=== PATIENT | female | born 1960 | race Caucasian/White ===

== ENCOUNTER 2025-07-24 14:16 | Inpatient (IN) | payer OTHER, SELFPAY ==
[2025-07-24] VITALS (7 sets, daily range): BP systolic 117–162; BP diastolic 71–95; BMI 33.2; BMI 35.1
[2025-07-24 11:42] LABS: Glucose - Point of Care 90 mg/dl (70-99)
[2025-07-24 12:02] LABS: Hematocrit 41.4 % (37.0-47.0); Hemoglobin 14.6 g/dL (12.0-16.0); Mean Corp Hgb Conc. 35.3 g/dL (33.0-37.0); Mean Corpuscular Volume 101.7 fL (81.0-99.0); Nucleated Red Blood Cells % 0 %; Platelet Count 229 10^3/uL (130-400); Red Cell Dist. Width 14.0 % (11.5-14.5)
[2025-07-24 12:13] LABS: ALT (SGPT) 22 U/L (0-35); AST (SGOT) 25 U/L (14-36); Albumin 4.2 g/dl (3.5-5.0); Alkaline Phosphatase 103 U/L (38-126); Blood Urea Nitrogen 11 mg/dl (7-17); Calcium 9.4 mg/dl (8.4-10.2); Carbon Dioxide 26 mmol/L (22-30); Chloride 107 mmol/L (98-107); Estimated Creatinine Clearance 117 ml/min; Glucose 96 mg/dl (70-99); Potassium 4.2 mmol/L (3.5-5.1); Sodium 138 mmol/L (135-145); Total Protein 7.0 g/dl (6.3-8.2); eGFR > 60.00
--- NOTE | 2025-07-24 13:22 | ED.GENMED ---
History of Present Illness
General
Chief Complaint: Dizziness
Time Seen by Provider: 07/24/25 11:41
History of Present Illness
History of Present Illness:
65-year-old female presents to the emergency department for evaluation of progressive worsening gait dysfunction and generalized weakness, notes that this morning her speech appeared to be worse than normal. She has a history of chronic
epilepsy and has been maintained on primidone and Dilantin for many years. She denies any headache or vision changes at this time. No extremity weakness or paresthesias reported by the patient
Review of Systems
Review of Systems
Allergies reviewed?: Yes
All Other Systems: ROS reviewed and negative except as documented in HPI and ROS
Phy Exam
Physical Exam
Physical Exam:
GEN: Well appearing, NAD, WDWN
HEENT: Oral mucosa moist, no scleral icterus, no nasal congestion
Cardiac: Regular rate
Lung: No respiratory distress, no tachypnea
MSK: No gross deformity or injuries
Skin: Good color, no pallor or jaundice, no rashes
Neuro: AO x2; CN II-XII grossly intact. BUE strength 5/5 in all rivas, sensation intact and symmetric. BLE strength 5/5 in all rivas, sensation intact and symmetric. Limb ataxia x 4, significant horizontal nystagmus noted
Psych: Calm, cooperative
Course
Orders/Labs/Results
Orders:
Orders
07/24/25 11:40
CT Head W/o Iv Contrast Urgent
Comment:
Reason For Exam: slurred speech/ataxia
07/24/25 11:41
Urinalysis Reflex To Culture Urgent
Date Specimen was Collected: 07/24/25
Time Specimen was Collected: 11:41
07/24/25 11:46
Alcohol Urgent
CBC/With Diff [Complete Blood Count/With Diff] Urgent
CMP [Comprehensive Metabolic Panel] Urgent
Dilantin Urgent
07/24/25 11:57
Speech Screening from Katerina Routine
07/24/25 12:34
Add On- LAB Urgent
Tests Added?: alcohol
07/24/25 13:24
Levetiracetam Injectable [Keppra] 500 mg IV NOW STA
07/24/25 13:26
Levetiracetam [Keppra] 500 mg PO NOW STA
07/24/25 13:55
Consult Neurology [NEUROLOGY CONSULT] Routine
Consulting Provider: Vivek Molina
Was physician already notified: Yes
Reason for consult: New neurological issues
07/24/25 13:56
Admit/Transfer Patient As Directed
Co-Sign Provider:
Level of Care: Inpatient admission
Assign to:: Telemetry
Physician / Group: tiana
Diagnosis: ataxia phenytoin toxicity
Reason for Telemetry: Arrhythmia
Date to Stop Telemetry: 07/27/25
Time to Stop Telemetry: 11:00
Reason for Hospitalization: ataxia phenytoin toxicity
Expected length of stay greater than two midnights?: Yes
ELOS- Estimated Length of Stay in days: 2
I certify the patient meets the requirements for IP care: Yes
Code Status As Directed
Resuscitation Status: Full Code
PRN Pain Medication Management As Directed
May give lesser potent ordered pain med per pt: Yes
preference::
Protocol:: Medication orders for pain may be administered in a
manner that supports deferring to patient preference
when the pt is:
- Requesting an ordered lesser potent pain medication.
Least to most potent pain medications are defined
as: acetaminophen < NSAID < tramadol < opioids
(morphine, oxycodone, hydromorphone).
- Requesting a lesser dose of the same medication IF
ORDERED.
- Requesting a less intrusive route of administration
if both routes are prescribed by the provider (PO <
IV).
07/27/25 11:00
DC Protocol for Telemetry ONCE
Abnormal Lab Results
07/24/25
11:46
WBC 4.7 L 10^3/uL
(4.8-10.8)
RBC 4.07 L 10^6/uL
(4.20-5.40)
MCV 101.7 H fL
(81.0-99.0)
MCH 35.9 H pg
(27.0-31.0)
Monocytes % 9.7 H %
(1.7-9.3)
Creatinine 0.5 L mg/dL
(0.6-1.0)
Phenytoin 29.4 H ug/ml
(10-20)
07/24/25 11:46
07/24/25 11:46
Vital Signs
Initial and Last Documented VS:
Initial Vital Signs
Temp Pulse Resp BP Pulse Ox
98.2 F 90 16 121/86 96
07/24/25 11:22 07/24/25 11:22 07/24/25 11:22 07/24/25 11:22 07/24/25 11:22
Last Documented Vital Signs
Temp Pulse Resp BP Pulse Ox
98.2 F 70 23 128/76 92
07/24/25 11:22 07/24/25 14:30 07/24/25 11:45 07/24/25 14:00 07/24/25 14:30
MDM/Problems Addressed
MDM/Problems Addressed:
This cerebellar atrophy which is most likely due to patient's chronic Dilantin use. Case was discussed with neurology patient at bedside and does not feel that additional imaging is of any value at this juncture. Will be admitted due to severe
gait instability, will transition antiepileptic therapy per neurology recommendations
*Pulse Oximetry
SaO2: 95
Oxygen Mode of Delivery: Room air
Patient hypoxic: no
*Critical Care Note
Total Time (30-74mins, 75-104mins- exclusive of procedures): Not Applicable
ED Attending Note
-
Portions of this chart may have been created with voice recognition software.� Occasional wrong word or��sound alike� substitutions may have occurred due to the inherent limitations of voice recognition software.
Discharge Plan
Departure
Patient Disposition: Admit
Date of Disposition: 07/24/25
Time of Disposition: 13:26
Admit to: Med/Surg
Presentation/result/management discussed w/ accepting MD/DO: Hospitalist
Patient with high blood pressure during this ER visit?: No
Discharge Problem:
Ataxia, Cerebellar atrophy
Interventions
Interventions:
*Risk Screen - Suicide Last Done: 07/24/25 11:22
*Neglect/Abuse Screening Last Done: 07/24/25 11:22
*ED- Fall Risk Assessment Last Done: 07/24/25 11:22
ED- Neurological Assessment Last Done: 07/24/25 11:53
ED- Cardiac Assessment Last Done: 07/24/25 11:53
ED Swallowing Screen Last Done: 07/24/25 11:53
--- NOTE | 2025-07-24 13:39 | CON.NEURO ---
Neuro Assessment/Plan
Assessment
head CT imgs and rept rev'd, I agree moderate cerebellar and mild brainstem atrophy.
Dilantin level 29.4 (10-20)
the nystagmus typically indicates therapeutic dilantin, and when double vision develops that usually indicates toxicity.
The cerebellar atrophy and ataxia likely mcfp effect of Dilantin and I agree with prior neurologists who have tried to get her off Dilantin though unsuccessfully with breakthrough sz
if she were to have breakthrough sz, I would increase Keppra, and not restart Dilantin; she does not drive
this may help the ataxia improve, or at least prevent worsening
will Rx Keppra 500 BID, decrease Dilantin 100 BID x1 week, then stop, continue Primidone for now though Ideally she eventually
I recommend admit obs PT/OT eval I have serious concerns for falls and fractures
she almost certainly has osteoporosis because 3 risk factors (post menopausal, mcfp Dilantin, and primidone) and a DEXA would be helpful to quantify the severity.
dysarthria, likely due to Dilantin changing facial structure.
Consultation
Order
Date of Consultation: 07/24/25
Requesting Provider: Stephanie
Reason for Consult: ataxia
Subjective/Objective
Subjective Data
Date of Service: July 24, 2025
65-year-old female presents to the emergency department for evaluation of progressive worsening gait dysfunction and generalized weakness, notes that this morning her speech appeared to be worse than normal. She has a history of chronic
epilepsy and has been maintained on primidone and Dilantin for many years. She denies any headache or vision changes at this time. No extremity weakness or paresthesias reported by the patient
Epilepsy began age 10. initially on phenobarb. for the past 25-30 years she has been on Dilantin 200 BID, and primidone 750 BID for sz. This regimen has been effective at controlling her sz, and her PCP has renewed them. Over the years, they saw
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
intermittent diplopia, not presently. never had dexa.
Objective Data
Vital Signs
Temp Pulse Resp BP Pulse Ox
36.8 C 83 23 142/92 95
07/24/25 11:22 07/24/25 11:45 07/24/25 11:45 07/24/25 11:39 07/24/25 13:24
Lab Results
07/24/25 11:46
07/24/25 11:46
Sodium 138 mmol/L (135-145) 07/24/25 11:46
Potassium 4.2 mmol/L (3.5-5.1) 07/24/25 11:46
BUN 11 mg/dl (7-17) 07/24/25 11:46
Glucose 96 mg/dl (70-99) 07/24/25 11:46
Calcium 9.4 mg/dl (8.4-10.2) 07/24/25 11:46
Patient Allergies
No Known Allergies Allergy (Unverified 07/24/25 11:21)
Physical Exam
-
AAOx3, mild dysarthria, language intact
VFF, EOMs restricted, + nystagmus
full strength b/l UE/LE,
ataxia x4 limbs more than expected for age.
Medications
-
Home Medications
�Medication �Instructions �Recorded
phenytoin sodium extended 200 mg 200 mg PO BID 07/24/25
capsule
primidone 250 mg tablet 750 mg PO BID 07/24/25
[2025-07-24] MEDS: KEPPRA 500 MG PO ×2 (13:40→20:07)
--- NOTE | 2025-07-24 13:58 | HPS.HSE ---
Family Physician
-
Family Physician: Duc Plunkett
Chief Complaint
-
ataxia
History of Present Illness
65-year-old female past medical history of epilepsy, presenting for progressive gait dysfunction and generalized weakness. She has been having gait dysfunction with falls for the past 2 weeks. Is also been having intermittent blurry vision and
double vision. Her notes that this morning her speech appeared to be worse than normal and she was acting drunk. She has a history of epilepsy and has been on primidone and Dilantin for many years without any seizure. Denies headache.
Denies weakness of the extremities, numbness or tingling.
She drinks alcohol a few times a year. Denies smoking or drugs.
Denies family history of neurological problems.
Medical History
Past Medical History
Past Medical History: Reports Other (epilepsy,)
Past Surgical History: Reports None
Social History
Tobacco: Non-smoker
Alcohol: Occasional
Drug: None
Family History
Family History: Not pertinent
Allergies / Home Medications
Allergies reflects when Allergies were last updated in [facility].
Home Medications with original date entered in [facility]
Allergy/Medication List:
Allergies
Allergy/AdvReac Type Severity Reaction Status Date / Time
No Known Allergies Allergy Unverified 07/24/25 11:21
Home Medications
phenytoin sodium extended 200 mg capsule 200 mg PO BID 07/24/25
primidone 250 mg tablet 750 mg PO BID 07/24/25
Review of Systems
-
Constitutional: Reports No Symptoms
EENT: Reports No Symptoms
Respiratory: Reports No Symptoms
Cardiac: Reports No Symptoms
Abdomen/GI: Reports No Symptoms
: Reports No Symptoms
Musculoskeletal: Reports No Symptoms
Skin: Reports No Symptoms
Neurological: Reports No Symptoms
Endocrine: Reports No Symptoms
Hematologic/Lymphatic: Reports No Symptoms
Psych: Reports No Symptoms
Physical Exam
Vital Signs
Vital Signs
Temp Pulse Resp BP Pulse Ox
98.2 F 83 23 142/92 95
07/24/25 11:22 07/24/25 11:45 07/24/25 11:45 07/24/25 11:39 07/24/25 13:24
Physical Exam
General: Well Developed, Well Nourished and No Apparent Distress
HEENT: NormoCephalic, Moist mucous membranes and Atraumatic
Respiratory: Clear
Cardiac: S1/S2 and Regular Rhythm; No Murmur or Rub
GI: Soft, Non Tender, Non Distended and Normal Bowel Sounds; No Organomegaly
Rectal: Deferred by Provider
Musculoskeletal: No Clubbing, No Cyanosis and No Edema
Skin: No Rash
Neuro: Nonfocal/grossly intact
Laboratory Results
-
07/24/25 11:46
07/24/25 11:46
Laboratory Results
Total Bilirubin 0.5 mg/dl (0.2-1.3) 07/24/25 11:46
AST 25 U/L (14-36) 07/24/25 11:46
ALT 22 U/L (0-35) 07/24/25 11:46
Alkaline Phosphatase 103 U/L (38-126) 07/24/25 11:46
Data Reviewed
-
Lab Data: Labs Reviewed by me
Old Records: Reviewed
Impression/Plan
-
IMPRESSION:
PLAN:
# Severe ataxia secondary to phenytoin toxicity/underlying cerebellar atrophy
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
- Phenytoin level of 29
-Urinalysis pending
-Alcohol level pending
- Neurology recommending weaning off Dilantin and starting Keppra
- Keppra 500 twice daily started
- Speech and swallow evaluation
# Leukopenia secondary to Dilantin
Epilepsy
-Patient now on Keppra
- Continue primidone
Full code
DVT prophylaxis�SCDs
Regular diet
--- NOTE | 2025-07-24 14:19 | CM ---
CM reviewed chart and met with pt and in ED. Lives with in 1 story home, [address].
Independent in ADLs, personal care and ambulation at baseline. Has cane but does not use it, states she uses the armenta for balance.
Unsure if she has prescription coverage, new insurance plan since retiring to cover her until she qualifies for Medicare next year.
No hx VN or SNF.
PCP: Duc Plunkett
Pharmacy: [facility]
CM will continue to follow for all discharge planning needs.
--- NOTE | 2025-07-24 15:52 | TRANSFER ---
Pt transferred from ED to [facility] at 1520. She stood and pivoted with standby assistance from the stretcher to the bed. Placed on tele monitor #[id number], NSR. Accompanied by her . She is on room air, no complaints at the moment. Some dysarthria
present. Strength 4/5 in all extremities. Admission and assessment completed by this RN. Call esquivel is within reach.
[2025-07-24] MEDS: DILANTIN 100 MG PO (20:07)
[2025-07-24] MEDS: MYSOLINE 750 MG PO (20:07)
[2025-07-25] VITALS (7 sets, daily range): BP systolic 120–138; BP diastolic 61–90; PULSE 80; O2SAT 95
[2025-07-25 06:00] LABS: Hematocrit 42.6 % (37.0-47.0); Hemoglobin 15.0 g/dL (12.0-16.0); Mean Corp Hgb Conc. 35.2 g/dL (33.0-37.0); Mean Corpuscular Volume 101.9 fL (81.0-99.0); Nucleated Red Blood Cells % 0 %; Platelet Count 214 10^3/uL (130-400); Red Cell Dist. Width 14.0 % (11.5-14.5)
[2025-07-25 06:29] LABS: ALT (SGPT) 21 U/L (0-35); AST (SGOT) 25 U/L (14-36); Albumin 4.1 g/dl (3.5-5.0); Alkaline Phosphatase 100 U/L (38-126); Blood Urea Nitrogen 9 mg/dl (7-17); Calcium 8.9 mg/dl (8.4-10.2); Carbon Dioxide 23 mmol/L (22-30); Chloride 106 mmol/L (98-107); Estimated Creatinine Clearance 112 ml/min; Glucose 82 mg/dl (70-99); Potassium 4.4 mmol/L (3.5-5.1); Sodium 137 mmol/L (135-145); Total Protein 6.9 g/dl (6.3-8.2); eGFR > 60.00
[2025-07-25] MEDS: MYSOLINE 750 MG PO ×2 (08:22→20:23)
[2025-07-25] MEDS: KEPPRA 500 MG PO ×2 (08:22→20:22)
[2025-07-25] MEDS: DILANTIN 100 MG PO (08:22)
--- NOTE | 2025-07-25 08:37 | W.PN.HOSP.TC ---
Today's Communication/Plan
-
Check EKG
- Repeat blood level
f/w neurology recommendations
Assessment / Plan
Assessment / Plan
Physical Exam
General: and No Apparent Distress
HEENT: Normocephalic, Moist mucous membranes and Atraumatic
Respiratory: Clear
Cardiac: S1/S2
GI: Soft, Non Tender, Non Distended and Normal Bowel Sounds;
Musculoskeletal: No Clubbing, No Cyanosis and No Edema
Skin: No Rash
Neuro: AAOX3, although forgetful to prior medical details, she followed commands, nystagmus noted. No tremor, No slurred speech.
Psych: calm.
# Chronic Phenytoin toxicity
Patient presented with ataxia, dysarthria, weakness.
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
- Phenytoin level of 29
-Check EKG
- Repeat blood level
-Alcohol level negative
- Started on Keppra 500 twice daily started
- Speech and swallow evaluation
- Neurology recommending , reducing the dose, weaning off Dilantin and starting Keppra
# Leukopenia secondary to Dilantin
Afebrile
Epilepsy
-Patient now on Keppra
- Continue primidone
Full code
DVT prophylaxis�SCDs
Regular diet
Total time spent to see the patient, examine the patient, review data and lab result, discuss treatment plan with patient, nursing staff around 55 minutes
Anticipated Discharge: > 48 hours
Subjective/Interval History
-
Date of Service: July 25, 2025
She feels better
She denies chest pain or abdominal pain
No nausea
No headache
Objective Data
-
Labs:
Laboratory Results
07/25/25
04:12
WBC 4.3 L
Hgb 15.0
Hct 42.6
Plt Count 214
Sodium 137
Potassium 4.4
Chloride 106
Carbon Dioxide 23
BUN 9
Creatinine 0.4 L
Glucose 82
Calcium 8.9
Total Bilirubin 0.6
AST 25
ALT 21
Alkaline Phosphatase 100
Vital Signs:
Vital Signs
Temp Pulse Resp BP Pulse Ox
97.8 F 74 16 138/90 95
07/25/25 07:18 07/25/25 07:18 07/25/25 07:18 07/25/25 07:18 07/25/25 07:18
I&O
07/24/25 07/25/25 07/26/25
06:59 06:59 06:59
Intake Total 150 / 150
Balance 150 / 150
[2025-07-26 03:25] VITALS: BP 137/87
[2025-07-26 07:07] VITALS: BP 141/87
[2025-07-26] MEDS: KEPPRA 500 MG PO (07:54)
[2025-07-26] MEDS: MYSOLINE 750 MG PO ×2 (07:55→20:07)
[2025-07-26] MEDS: DILANTIN PO (07:58)
[2025-07-26 08:17] LABS: Hematocrit 43.3 % (37.0-47.0); Hemoglobin 15.1 g/dL (12.0-16.0); Mean Corp Hgb Conc. 34.9 g/dL (33.0-37.0); Mean Corpuscular Volume 100.7 fL (81.0-99.0); Platelet Count 178 10^3/uL (130-400); Red Cell Dist. Width 14.4 % (11.5-14.5)
[2025-07-26] MEDS: DULCOLAX 10 MG PO (08:20)
[2025-07-26 08:43] LABS: ALT (SGPT) 22 U/L (0-35); AST (SGOT) 23 U/L (14-36); Albumin 4.3 g/dl (3.5-5.0); Alkaline Phosphatase 100 U/L (38-126); Blood Urea Nitrogen 13 mg/dl (7-17); Calcium 9.2 mg/dl (8.4-10.2); Carbon Dioxide 24 mmol/L (22-30); Chloride 107 mmol/L (98-107); Estimated Creatinine Clearance 112 ml/min; Glucose 86 mg/dl (70-99); Potassium 4.7 mmol/L (3.5-5.1); Sodium 137 mmol/L (135-145); Total Protein 7.2 g/dl (6.3-8.2); eGFR > 60.00
[2025-07-26 11:06] VITALS: BP 127/84
--- NOTE | 2025-07-26 11:22 | W.PN.NEURO.1 ---
Today's Communication / Plan
-
Would maintain phenytoin at 100 mg twice a day for now
Increase levetiracetam dosing from 500 mg twice daily to 1000 mg twice daily in hopes of reducing risk of future seizure
Eventual discontinuance of phenytoin due to cerebellar atrophy
Continue primidone 750 mg twice a day for now
Neuro Assessment/Plan
Assessment
head CT imgs demonstrate moderate cerebellar and mild brainstem atrophy.
Dilantin level 29.4 (10-20) initially
The cerebellar atrophy and ataxia likely custodial effect of Dilantin prior attempts to discontinue Dilantin were unsuccessfull with breakthrough sz
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
Plan
Would maintain phenytoin at 100 mg twice a day for now
Increase levetiracetam dosing from 500 mg twice daily to 1000 mg twice daily in hopes of reducing risk of future seizure
Eventual discontinuance of phenytoin due to cerebellar atrophy
Continue primidone 750 mg twice a day for now
Will follow as outpatient
Subjective/Objective
Subjective Data
Date of Service: July 26, 2025
Objective Data
Vital Signs
Temp Pulse Resp BP Pulse Ox
36.6 C 74 16 127/84 94
07/26/25 11:06 07/26/25 11:06 07/26/25 11:06 07/26/25 11:06 07/26/25 11:06
Lab Results
07/26/25 07:47
07/26/25 07:47
Sodium 137 mmol/L (135-145) 07/26/25 07:47
Potassium 4.7 mmol/L (3.5-5.1) 07/26/25 07:47
BUN 13 mg/dl (7-17) 07/26/25 07:47
Glucose 86 mg/dl (70-99) 07/26/25 07:47
Calcium 9.2 mg/dl (8.4-10.2) 07/26/25 07:47
Patient Allergies
No Known Allergies Allergy (Unverified 07/24/25 11:21)
Data Reviewed
-
Labs: Report Reviewed
Reviewed with: Physician
Old Records: Summarized
[2025-07-26 15:17] VITALS: BP 136/82
--- NOTE | 2025-07-26 15:22 | W.PN.HOSP.TC ---
Today's Communication/Plan
-
Increase Keppra
PT/OT
Disposition planning
Assessment / Plan
Assessment / Plan
Physical Exam
General: and No Apparent Distress
HEENT: Normocephalic, Moist mucous membranes and Atraumatic
Respiratory: Clear
Cardiac: S1/S2
GI: Soft, Non Tender, Non Distended and Normal Bowel Sounds;
Musculoskeletal: No Clubbing, No Cyanosis and No Edema
Skin: No Rash
Neuro: AAOX3, although forgetful to prior medical details, she followed commands, nystagmus noted. No tremor, No slurred speech.
Psych: calm.
# Chronic Phenytoin toxicity
Patient presented with ataxia, dysarthria, weakness.
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
- Phenytoin level of 29
- Neurology recommending , reducing the dose, weaning off Dilantin and starting Keppra
-Would maintain phenytoin at 100 mg twice a day for now
-Increase levetiracetam dosing from 500 mg twice daily to 1000 mg twice daily in hopes of reducing risk of future seizure
-Eventual discontinuance of phenytoin due to cerebellar atrophy
-Continue primidone 750 mg twice a day for now
# Leukopenia secondary to Dilantin
Afebrile
Epilepsy
-Patient now on Keppra
- Continue primidone
Full code
DVT prophylaxis�SCDs
Regular diet
Anticipated Discharge: Within 24 hours
Subjective/Interval History
-
Date of Service: July 26, 2025
Patient's speech has improved as per patient
Objective Data
-
Labs:
Laboratory Results
07/26/25
07:47
WBC 4.3 L
Hgb 15.1
Hct 43.3
Plt Count 178
Sodium 137
Potassium 4.7
Chloride 107
Carbon Dioxide 24
BUN 13
Creatinine 0.5 L
Glucose 86
Calcium 9.2
Total Bilirubin 0.7
AST 23
ALT 22
Alkaline Phosphatase 100
Vital Signs:
Vital Signs
Temp Pulse Resp BP Pulse Ox
96.9 F L 78 16 136/82 95
07/26/25 15:17 07/26/25 15:17 07/26/25 15:17 07/26/25 15:17 07/26/25 15:17
I&O
07/25/25 07/26/25 07/27/25
06:59 06:59 06:59
Intake Total 150 / 150 840 / 840
Balance 150 / 150 840 / 840
Review of Systems
-
History Source: Patient
All other systems: Not reviewed unless documented
Data Reviewed
-
CT Scan: Report Reviewed by me
Labs: Labs Reviewed by me
--- NOTE | 2025-07-26 16:03 | CM ---
manager music met with patient and reviewed physical therapy notes and recommendation is for skilled placement options reviewed with patient and patient has selected [facility] and [facility]. Referrals sent.
Plan; Skilled placement, will need to check to see if patient has a rehab benefit with her insurance.
[2025-07-26] MEDS: HEPARIN 5000 UNITS SC ×2 (16:58→23:49)
[2025-07-26 19:13] VITALS: BP 130/83
[2025-07-26] MEDS: KEPPRA 1000 MG PO (20:07)
[2025-07-26] MEDS: DILANTIN 100 MG PO (20:07)
[2025-07-26 23:17] VITALS: BP 120/71
[2025-07-27] VITALS (7 sets, daily range): BP systolic 115–149; BP diastolic 67–90; PULSE 84–90; O2SAT 96
[2025-07-27] MEDS: KEPPRA 1000 MG PO ×2 (07:56→20:47)
[2025-07-27] MEDS: MYSOLINE 750 MG PO ×2 (07:56→20:47)
[2025-07-27] MEDS: DILANTIN 100 MG PO (07:57)
[2025-07-27] MEDS: HEPARIN 5000 UNITS SC ×3 (07:58→23:53)
[2025-07-27 08:43] LABS: Hematocrit 44.1 % (37.0-47.0); Hemoglobin 15.0 g/dL (12.0-16.0); Mean Corp Hgb Conc. 34.0 g/dL (33.0-37.0); Mean Corpuscular Volume 102.3 fL (81.0-99.0); Platelet Count 217 10^3/uL (130-400); Red Cell Dist. Width 14.4 % (11.5-14.5)
[2025-07-27 09:06] LABS: ALT (SGPT) 20 U/L (0-35); AST (SGOT) 24 U/L (14-36); Albumin 4.4 g/dl (3.5-5.0); Alkaline Phosphatase 109 U/L (38-126); Blood Urea Nitrogen 11 mg/dl (7-17); Calcium 9.2 mg/dl (8.4-10.2); Carbon Dioxide 29 mmol/L (22-30); Chloride 105 mmol/L (98-107); Estimated Creatinine Clearance 112 ml/min; Glucose 95 mg/dl (70-99); Potassium 4.5 mmol/L (3.5-5.1); Sodium 137 mmol/L (135-145); Total Protein 7.2 g/dl (6.3-8.2); eGFR > 60.00
--- NOTE | 2025-07-27 13:04 | W.PN.NEURO.1 ---
Today's Communication / Plan
-
Would discontinue phenytoin due to continued symptoms
Increased levetiracetam dosing from 500 mg twice daily to 1000 mg twice daily in hopes of reducing risk of future seizure
Continue primidone 750 mg twice a day for now
Neuro Assessment/Plan
Assessment
head CT imgs demonstrate moderate cerebellar and mild brainstem atrophy.
Dilantin level 29.4 (10-20) initially
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
she almost certainly has osteoporosis because 3 risk factors (post menopausal, retirement Dilantin, and primidone) and a DEXA would be helpful to quantify the severity.
Plan
Would discontinue phenytoin due to continued symptoms
Increased levetiracetam dosing from 500 mg twice daily to 1000 mg twice daily in hopes of reducing risk of future seizure
Continue primidone 750 mg twice a day for now
Will follow as outpatient
Subjective/Objective
Subjective Data
Date of Service: July 27, 2025
Objective Data
Vital Signs
Temp Pulse Resp BP Pulse Ox
36.5 C 80 19 116/83 94
07/27/25 11:00 07/27/25 11:00 07/27/25 11:00 07/27/25 11:00 07/27/25 11:00
Lab Results
07/27/25 08:12
07/27/25 08:12
Sodium 137 mmol/L (135-145) 07/27/25 08:12
Potassium 4.5 mmol/L (3.5-5.1) 07/27/25 08:12
BUN 11 mg/dl (7-17) 07/27/25 08:12
Glucose 95 mg/dl (70-99) 07/27/25 08:12
Calcium 9.2 mg/dl (8.4-10.2) 07/27/25 08:12
Patient Allergies
No Known Allergies Allergy (Unverified 07/24/25 11:21)
Past History
Past History
ED Past Medical History: Other (seizures)
Family History
Family History: Other (reviewed and non-contributory)
Medications
-
Medications:
Generic Name Dose Route Start Last Admin
Trade Name Freq PRN Reason Stop Dose Admin
Bisacodyl 10 mg 07/25/25 18:11 07/26/25 08:20
Bisacodyl 5 Mg Enteric Coated Tablet PO 08/22/25 18:10 10 mg
DAILYPRN PRN Administration
constipation
Heparin Sodium 5,000 units 07/26/25 16:00 07/27/25 07:58
Heparin 5,000 Units/Ml 1 Ml Vial SC 08/23/25 15:59 5,000 units
Q8 SCAR Administration
Levetiracetam 1,000 mg 07/26/25 11:21 07/27/25 07:56
Levetiracetam 500 Mg Regular Release Tablet PO 08/21/25 19:59 1,000 mg
BID SCAR Administration
Primidone 750 mg 07/24/25 20:00 07/27/25 07:56
Primidone 250 Mg Tablet PO 08/21/25 19:59 750 mg
BID SCAR Administration
Sodium Chloride 0 flush 07/26/25 16:00
Sodium Chloride 0.9% (Flush) Syringe IV 08/23/25 15:59
PER PROTOCOL SCAR
--- NOTE | 2025-07-27 13:57 | CM ---
Addendum entered by Georgina Gomez 07/27/25 16:54:
Multiple calls placed to check on patient's insurance, correctional case manager spoke with Jeanette liu and she will contact her cooperate offices to see if any of their facilities will accept patient for rehab.
Original Note:
tire shop manager reviewed patient's chart and physical therapy are still recommending skilled placement, referrals sent to [facility], [facility] and [facility], patient's insurance does not have a contract with [facility], Per Elisha in admissions at [facility] she will review insurance to check benefits.
Plan; Skilled placement, patient has a [employer] plan, need to locate a in network facility.
--- NOTE | 2025-07-27 14:06 | W.PN.HOSP.TC ---
Today's Communication/Plan
-
stop dilantin
keppra
dc ready
Assessment / Plan
Assessment / Plan
Physical Exam
General: and No Apparent Distress
HEENT: Normocephalic, Moist mucous membranes and Atraumatic
Respiratory: Clear
Cardiac: S1/S2
GI: Soft, Non Tender, Non Distended and Normal Bowel Sounds;
Musculoskeletal: No Clubbing, No Cyanosis and No Edema
Skin: No Rash
Neuro: AAOX3, although forgetful to prior medical details, she followed commands, nystagmus noted. No tremor, No slurred speech.
Psych: calm.
# Chronic Phenytoin toxicity
Patient presented with ataxia, dysarthria, weakness.
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
- Phenytoin level of 29
- Stopping Dilantin due to continued symptoms; may take 72 hours for evidence of improved response
-Increase levetiracetam dosing from 500 mg twice daily to 1000 mg twice daily in hopes of reducing risk of future seizure
-Continue primidone 750 mg twice a day for now
# Leukopenia secondary to Dilantin
Afebrile
Epilepsy
-Patient now on Keppra
- Continue primidone
Full code
DVT prophylaxis�hsq
Regular diet
Anticipated Discharge: Within 24 hours
Subjective/Interval History
-
Date of Service: July 27, 2025
No acute events overnight
Objective Data
-
Labs:
Laboratory Results
07/27/25
08:12
WBC 5.0
Hgb 15.0
Hct 44.1
Plt Count 217 D
Sodium 137
Potassium 4.5
Chloride 105
Carbon Dioxide 29
BUN 11
Creatinine 0.5 L
Glucose 95
Calcium 9.2
Total Bilirubin 0.6
AST 24
ALT 20
Alkaline Phosphatase 109
Vital Signs:
Vital Signs
Temp Pulse Resp BP Pulse Ox
97.7 F 80 19 116/83 94
07/27/25 11:00 07/27/25 11:00 07/27/25 11:00 07/27/25 11:00 07/27/25 11:00
I&O
07/26/25 07/27/25 07/28/25
06:59 06:59 06:59
Intake Total 840 / 840 1280 / 1280
Balance 840 / 840 1280 / 1280
Review of Systems
-
History Source: Patient
All other systems: Not reviewed unless documented
Data Reviewed
-
CT Scan: Report Reviewed by me
Labs: Labs Reviewed by me
[2025-07-28] MEDS: TYLENOL 650 MG PO (03:26)
[2025-07-28 04:18] VITALS: BP 113/67
[2025-07-28 06:58] LABS: ALT (SGPT) 22 U/L (0-35); AST (SGOT) 25 U/L (14-36); Albumin 3.9 g/dl (3.5-5.0); Alkaline Phosphatase 103 U/L (38-126); Blood Urea Nitrogen 10 mg/dl (7-17); Calcium 9.1 mg/dl (8.4-10.2); Carbon Dioxide 28 mmol/L (22-30); Chloride 106 mmol/L (98-107); Estimated Creatinine Clearance 112 ml/min; Glucose 88 mg/dl (70-99); Potassium 4.1 mmol/L (3.5-5.1); Sodium 137 mmol/L (135-145); Total Protein 6.7 g/dl (6.3-8.2); eGFR > 60.00
[2025-07-28 07:12] LABS: Hematocrit 40.2 % (37.0-47.0); Hemoglobin 13.7 g/dL (12.0-16.0); Mean Corp Hgb Conc. 34.1 g/dL (33.0-37.0); Mean Corpuscular Volume 102.0 fL (81.0-99.0); Platelet Count 206 10^3/uL (130-400); Red Cell Dist. Width 14.4 % (11.5-14.5)
[2025-07-28 07:15] VITALS: BP 120/77
--- NOTE | 2025-07-28 08:11 | VATNOTE ---
Pt c/o mild discomfort at IV site. Site assessed with no s/s infiltration, phlebitis, or infection. Pt may be discharged today per PCN, so reluctant to replace IV. Heat applied to site, pt states relief from discomfort with heat application.
Informed pt to notify PCN if discomfort persisted and pt wanted IV changed and this RN would return to change IV site.
[2025-07-28] MEDS: HEPARIN 5000 UNITS SC (08:40)
[2025-07-28] MEDS: KEPPRA 1000 MG PO (08:41)
[2025-07-28] MEDS: MYSOLINE 750 MG PO (08:41)
--- NOTE | 2025-07-28 10:26 | CM ---
Addendum entered by Georgina Gomez 07/28/25 16:19:
Home today with walker, spouse to transport.
Original Note:
life sciences manager continues to reach out to patient's insurance call placed to [facility] and he said they are a 3rd democrat manager fitness and pillowcase cleaner would have to call [employer] [facility] at [phone], pillowcase cleaner reached out and spoke
with Debra and she reviewed patient's insurance and patient has Hospital coverage through confinement care benefit, PCP office coverage $50 per day max of 3 days, and emergency room benefit along with accidental benefit, patient has no
skilled benefit or acute rehab benefit through her insurance.
Plan; Home when stable.
[2025-07-28 11:29] VITALS: BP 114/82
--- NOTE | 2025-07-28 14:00 | W.PN.HOSP.TC ---
Addendum entered and electronically signed by Hai Mooney MD 07/28/25 17:33:
[id number]
Addendum entered and electronically signed by Hai Mooney MD 07/28/25 15:47:
More than 30 minutes spent in discharge including
Final examination of the patient
Summarizing hospital stay
Instructions for continuing care to all relevant caregivers
Preparation of discharge records, prescriptions, and referral forms
Total time spent (in minutes): 37
Insurance not covering facilities - patient agreeable understanding risks -of being discharged home with walker; patient has as supervision at home
Original Note:
Today's Communication/Plan
-
Disposition efforts
Assessment / Plan
Assessment / Plan
Physical Exam
General: and No Apparent Distress
HEENT: Normocephalic, Moist mucous membranes and Atraumatic
Respiratory: Clear
Cardiac: S1/S2
GI: Soft, Non Tender, Non Distended and Normal Bowel Sounds;
Musculoskeletal: No Clubbing, No Cyanosis and No Edema
Skin: No Rash
Neuro: AAOX3, although forgetful to prior medical details, she followed commands, nystagmus noted. No tremor, No slurred speech.
Psych: calm.
# Chronic Phenytoin toxicity
Patient presented with ataxia, dysarthria, weakness.
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
- Phenytoin level of 29
- Stopping Dilantin due to continued symptoms; may take 72 hours for evidence of improved response
-Increase levetiracetam dosing from 500 mg twice daily to 1000 mg twice daily in hopes of reducing risk of future seizure
-Continue primidone 750 mg twice a day for now
# Leukopenia secondary to Dilantin
Afebrile
Epilepsy
-Patient now on Keppra
- Continue primidone
Full code
DVT prophylaxis�hsq
Regular diet
Anticipated Discharge: Within 24 hours
Subjective/Interval History
-
Date of Service: July 28, 2025
No acute events
Improvement in symptoms as per patient
Objective Data
-
Labs:
Laboratory Results
07/28/25
05:52
WBC 3.9 L
Hgb 13.7
Hct 40.2
Plt Count 206
Sodium 137
Potassium 4.1
Chloride 106
Carbon Dioxide 28
BUN 10
Creatinine 0.4 L
Glucose 88
Calcium 9.1
Total Bilirubin 0.5
AST 25
ALT 22
Alkaline Phosphatase 103
Vital Signs:
Vital Signs
Temp Pulse Resp BP Pulse Ox
97.7 F 90 16 114/82 93
07/28/25 11:29 07/28/25 11:29 07/28/25 11:29 07/28/25 11:29 07/28/25 11:29
I&O
07/27/25 07/28/25 07/29/25
06:59 06:59 06:59
Intake Total 1280 / 1280 1879
Balance 1280 / 1280 1879
Review of Systems
-
History Source: Patient
All other systems: Not reviewed unless documented
Data Reviewed
-
CT Scan: Report Reviewed by me
Labs: Labs Reviewed by me
[2025-07-28 15:15] VITALS: BP 132/77
--- NOTE | 2025-07-28 15:47 | W.DS.TRANS ---
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
-
Discharge Instructions:
Discharge Diagnosis/Procedures # Chronic Phenytoin toxicity
Activity As tolerated
Blood Work cbc and cmp in 1 week with pcp
Instructions:
Stand-Alone Forms:
Changes to Home Medications: Yes
Discharge Medications:
DC Medications w/original date entered in [facility]
primidone 250 mg tablet 750 mg PO BID Seizures 07/24/25
levetiracetam 500 mg tablet 1,000 mg (2 x 500 mg) PO BID 30 days #120 tabs 07/28/25
Home Medication Changes
levetiracetam 500 mg tablet 1,000 mg (2 x 500 mg) PO BID 30 days #120 tabs 07/28/25
Pending Results: No
[2025-07-28] MEDS: HEPARIN SC (16:29)
--- NOTE | 2025-07-28 16:31 | PTCARENOTE ---
Discharge instructions reviewed with patient--this RN read instructions over, numerous times. Patient had difficulties understanding instructions. This RN did emphasize importance of finding a PCP for lab work and calling neurology for a follow up
appointment. Medication instructions reviewed with read back. IV removed. Tele removed. All belongings accounted for.Patient provided with a rolling walker to take home. Patient's spouse coming to excelsior picker for discharge to home.
== END 2025-07-28 17:50 | disposition home or self-care (01) | DRG 93 ==
LOC: 4 WEST ACU 14:16
PROVIDERS: Internal Medicine; Physician Assistant; ADMITTING PHYSICIAN Hospitalist; ATTENDING PHYSICIAN Internal Medicine; CONSULT PHYSICIAN Psychiatry & Neurology Clinical Neurophysiology; EMERGENCY PHYSICIAN Emergency Medicine; FAMILY PHYSICIAN Family Medicine
DX: R26.0 Ataxic gait (principal); G31.89 Other specified degenerative diseases of nervous system; G40.909 Epilepsy, unspecified, not intractable, without status epilepticus; H55.00 Unspecified nystagmus; M81.0 Age-related osteoporosis without current pathological fracture; H53.2 Diplopia; D72.819 Decreased white blood cell count, unspecified; R47.1 Dysarthria and anarthria; T42.0X5A Adverse effect of hydantoin derivatives, initial encounter; Y92.9 Unspecified place or not applicable; Z59.71 Insufficient health insurance coverage
CPT/HCPCS: 70450; 80053; 80185; 82077; 82962; 85025; 85027; 93005; 97116; 97129; 97163; 97167; 97530; 97535; 99285

== ENCOUNTER 2025-09-25 22:33 | Inpatient (IN) | payer OTHER, SELFPAY ==
[2025-09-25] VITALS (8 sets, daily range): BP systolic 91–127; BP diastolic 72–93; BMI 34.5
--- NOTE | 2025-09-25 19:42 | ED.GENMED ---
History of Present Illness
<Katty Ellison PA-C - Last Filed: 09/26/25 01:55>
General
Chief Complaint: Breathing Problem
Source: patient
Exam Limitations: none
Time Seen by Provider: 09/25/25 19:40
Nursing documentation reviewed up to this point in time: agreed with
History of Present Illness
History of Present Illness:
Patient is a 65-year-old female with history epilepsy who presents to the emergency department for evaluation of shortness of breath. Patient states that yesterday evening around 11:30 PM she was leaning forward over her bed to ease her back pain
(which she states is chronic). Her states that she then had a witnessed syncopal event. She did not strike her head and he states it was a very slow fall without any significant trauma. Patient's states that she was 'minimally
responsive' for about 5 minutes. Her eyes were open and she was breathing.
Once coming to, she had almost immediate shortness of breath and persistent back pain. She slept on the floor for a few hours. This morning, she initially thought that she was feeling better however noticed progressively worsening shortness of
breath and significant exertional dyspnea today. She states that she took a shower and was extremely winded.
She does have persistent pain throughout both her upper and lower back which she states is unchanged from her baseline. However, the shortness of breath is new. She denies any chest pain. She denies any fever, chills, productive cough, or other
recent viral symptoms. She denies any new or worsening swelling in her lower legs. No fever.
She denies any recent travel or recent surgeries. She is not on any exogenous hormone use. No personal or family history of blood clots/clotting disorders.
Past History
<Katty Ellison PA-C - Last Filed: 09/26/25 01:55>
Past History
ED Past Medical History: Other (seizures)
Family History
Family History: Other (reviewed and non-contributory)
Review of Systems
<Katty Ellison PA-C - Last Filed: 09/26/25 01:55>
Review of Systems
Allergies reviewed?: Yes
All Other Systems: ROS reviewed and negative except as documented in HPI and ROS
Phy Exam
<Katty Ellison PA-C - Last Filed: 09/26/25 01:55>
Physical Exam
Physical Exam:
Vitals: Mild tachypnea. Otherwise vital signs stable.
General: Patient with mildly increased work of breathing.
Skin: Warm and dry, no rashes or lesions
Head: Normocephalic, atraumatic
Eyes: Sclera nonicteric.
Throat: Protecting airway
Neck: Normal ROM, no cervical spine tenderness, no meningismus
Cardiac: Tachycardic, normal, no murmurs.
Pulm: Increased respiratory effort. Lungs clear bilaterally without wheeze, rales, or rhonchi.
Abdomen: No abdominal tenderness.
Extremities: Nonpitting edema bilateral lower extremities. No erythema, warmth, or calf tenderness.
Neuro: AAOx3. Grossly intact.
Psychiatric: Normal affect.
Scores
<Katty Ellison PA-C - Last Filed: 09/26/25 01:55>
Heart Failure Risk
Heart Failure Risk Score: Not Applicable
Course
<Katty Ellison PA-C - Last Filed: 09/26/25 01:55>
Orders/Labs/Results
Orders:
Orders
09/25/25 20:05
Complete Blood Count/With Diff Urgent
Comprehensive Metabolic Panel Urgent
Keppra (Levetiracetam) [S] Urgent
NT-proBNP Urgent
Troponin I Urgent
09/25/25 20:09
CT Chest PE Study Urgent
Comment:
Reason For Exam: Back pain, SOB, syncope
09/25/25 20:10
Electrocardiogram (*1) Urgent
Reason for Study: Shortness of Breath
EKG- Treatment ONCE
CR Chest - 2 Views Urgent
Comment:
Reason For Exam: SOB
09/25/25 21:[address] Non Medication Order As Directed
Physician Order: PTT 6 hours after initial start of Heparin infusion
Above order entered?: Yes
09/25/25 21:40
PTT Urgent
Comment: Obtain baseline before beginning heparin infusion if not already collected
09/25/25 21:45
Heparin 24232 Units/250 ml 25,000 units in 250 ml IV PER PROTOCOL
Weight to be used for heparin protocol in kilograms (kg):: 99.79
Protocol:: DVT/PE
PTT Goal Range to be used:: PTT 73 to 111 seconds
Order type:: Initial
INITIAL Infusion Dose (UNITS/KG/hr) & then follow protocol:: 18 units/kg/hr
Infusion Dose in UNITS/hr & then follow protocol (UNITS/hr):: 1,800
INFUSION RATE in mL/hr & then follow protocol (mL/hr):: 18
For DVT/PE algorithm, re-bolus for low PTT?: Yes
PTT less than or equal to 64 seconds:: Re-bolus 80 units/kg (max 10,000units). Increase by 400 units/hr
(+ 4mL/hr)
PTT 64.1 to 72.9 seconds:: Re-bolus 40 units/kg (max 5,000 units). Increase by 200 units/hr
(+ 2mL/hr)
PTT 73 to 111 seconds:: Target Range. No change in rate.
PTT 111.1 to 130.9 seconds:: Decrease rate by 200 units/hr (- 2 mL/hr)
PTT 131 to 199.9 seconds:: HOLD for 1 hr. Then decrease by 300 units/hr (- 3mL/hr)
PTT greater than or equal to 200 seconds:: HOLD for 2 hrs & Notify Provider. Then decrease by 400 units/hr
(- 4mL/hr)
Lab follow-up:: Each change, PTT q6h until 2 consecutive are therapeutic. Then
PTT daily.
09/25/25 21:57
Heparin 8,000 units IV NOW STA
09/25/25 22:09
Heparin 4,000 units IV PRN PRN
Heparin 8,000 units IV PRN PRN
09/25/25 22:14
Admit/Transfer Patient As Directed
Co-Sign Provider:
Level of Care: Inpatient admission
Assign to:: ICU
Physician / Group: Yessenia
Transfer to: ICU
Diagnosis: submassive PE
Reason for Hospitalization: acute pulmonary embolism
Expected length of stay greater than two midnights?: Yes
ELOS- Estimated Length of Stay in days: 2
I certify the patient meets the requirements for IP care: Yes
09/25/25 22:15
PRN Pain Medication Management As Directed
May give lesser potent ordered pain med per pt: Yes
preference::
Protocol:: Medication orders for pain may be administered in a
manner that supports deferring to patient preference
when the pt is:
- Requesting an ordered lesser potent pain medication.
Least to most potent pain medications are defined
as: acetaminophen < NSAID < tramadol < opioids
(morphine, oxycodone, hydromorphone).
- Requesting a lesser dose of the same medication IF
ORDERED.
- Requesting a less intrusive route of administration
if both routes are prescribed by the provider (PO <
IV).
09/25/25 22:16
Code Status As Directed
Resuscitation Status: Full Code
09/25/25 22:25
COVID-19 Antigen Stat
Source: Nasal Swab
09/26/25 01:19
Acetaminophen [Tylenol] 650 mg PO Q4HPRN PRN
HYDROmorphone [Dilaudid] 0.5 mg IV Q4HPRN PRN
Lactated Ringers [Lr] 1,000 ml IV 75 mls/hr
09/26/25 01:19
Echo 2D MMode Color/Doppler Routine
Reason for Study: pulmonary embolism
IRAD CONSULT Routine
Consulting Provider: Everette Evans
Was physician already notified: Yes
Procedure being ordered, including laterality if applicable: possible thrombolysis for submassive pe
Acknowledgement that appropriate orders are entered: Yes
PULMONARY CONSULT Routine
Consulting Provider: Michael Holden
Was physician already notified: Yes
Heparin Protocol- PTT Orders As Directed
PTT per Heparin protocol: -Obtain CBC and baseline PTT - if not already collected.
-Obtain PTT 6 hours from start of infusion. Then, every 6 hours until 2 consecutive
PTT's are therapeutic. Then, PTT Daily.
-With each rate change, obtain PTT every 6 hours until 2 consecutive PTT's are
therapeutic. Then, PTT Daily.
Activity As Directed
Activity Level: With Assistance
Bladder Scan As Directed
Follow Bladder Retention/Intermittent Cath Algorithm?: Yes
Frequency: Per Retention Algorithm
Comment: as per intermittent urinary catheter algorithm
Bladder Scan As Directed
Follow Bladder Retention/Intermittent Cath Algorithm?: Yes
PRN if no void in __ hours: 6
Frequency: Per Retention Algorithm
If Bladder Scan Result >: 400
then:: Straight cath
Intake/ Output As Directed
Frequency: Per unit guidelines
Notify MD As Directed
Notify physician if: PTT is greater than or equal to 200.
Straight Cath As Directed
Frequency: Per Retention Algorithm
Additional Instructions: as per intermittent urinary catheter algorithm
Straight Cath As Directed
Frequency: Per Retention Algorithm
Additional Instructions: straight cath as needed per acute urinary retention algorithm for 24 hrs
Additional Instructions: for bladder scan greater than 400 mL
Vital Signs As Directed
Frequency: Per unit guidelines
O2 Therapy [RESP] Routine
Nasal Cannula Liter Flow: 2 LPM
Titrate/Wean O2 to maintain O2 sat greater than (%): 90
Pulse Ox/cont/shift [RESP] Routine
Quantity: 1
Special Instructions: check O2 Sat Q8 hours and at each change in oxygen liter flow and FiO2
US Periph Venous LOWER Ext Jaya Routine
Comment:
Reason For Exam: DVT/PE
09/26/25 04:00
PTT Urgent
Troponin I Q8H
09/26/25 06:00
Type+Screen IN AM
Electrocardiogram (*1) IN AM
Reason for Study: Other
Other Reason for Exam: pulmonary embolism
Regular
09/26/25 08:00
Docusate Sodium [Colace] 100 mg PO BID
Levetiracetam [Keppra] 1,000 mg PO BID
Pantoprazole [Protonix] 40 mg PO DAILY
Primidone [Mysoline] 750 mg PO BID
09/26/25 12:00
Troponin I Q8H
09/27/25 06:00
Complete Blood Count/No Diff Q2D
Comment: notify provider: Platelet count < 130,000 or decrease by 50% from baseline
09/29/25 06:00
Complete Blood Count/No Diff Q2D
Comment: notify provider: Platelet count < 130,000 or decrease by 50% from baseline
10/01/25 06:00
Complete Blood Count/No Diff Q2D
Comment: notify provider: Platelet count < 130,000 or decrease by 50% from baseline
10/03/25 06:00
Complete Blood Count/No Diff Q2D
Comment: notify provider: Platelet count < 130,000 or decrease by 50% from baseline
10/05/25 06:00
Complete Blood Count/No Diff Q2D
Comment: notify provider: Platelet count < 130,000 or decrease by 50% from baseline
10/07/25 06:00
Complete Blood Count/No Diff Q2D
Comment: notify provider: Platelet count < 130,000 or decrease by 50% from baseline
10/09/25 06:00
Complete Blood Count/No Diff Q2D
Comment: notify provider: Platelet count < 130,000 or decrease by 50% from baseline
10/11/25 06:00
Complete Blood Count/No Diff Q2D
Comment: notify provider: Platelet count < 130,000 or decrease by 50% from baseline
Abnormal Lab Results
09/25/25
20:05
MCV 104.0 H fL
(81.0-99.0)
MCH 34.9 H pg
(27.0-31.0)
MPV 10.7 H fL
(7.4-10.4)
Sodium 133 L mmol/L
(135-145)
Glucose 153 H mg/dl
(70-99)
AST 45 H U/L
(14-36)
ALT 39 H U/L
(0-35)
Troponin I 1.250 H* ng/ml
09/25/25 20:05
09/25/25 20:05
Vital Signs
Initial and Last Documented VS:
Initial Vital Signs
Pulse Resp BP Pulse Ox
96 26 106/76 95
09/25/25 19:29 09/25/25 19:29 09/25/25 19:29 09/25/25 19:29
Last Documented Vital Signs
Temp Pulse Resp BP Pulse Ox
98.0 F 85 14 100/73 98
09/25/25 23:36 09/26/25 00:55 09/26/25 00:55 09/26/25 00:55 09/26/25 00:55
<Santiago Salcedo MD - Last Filed: 09/25/25 23:25>
Orders/Labs/Results
Orders:
Orders
09/25/25 20:05
Complete Blood Count/With Diff Urgent
Comprehensive Metabolic Panel Urgent
Keppra (Levetiracetam) [S] Urgent
NT-proBNP Urgent
Troponin I Urgent
09/25/25 20:09
CT Chest PE Study Urgent
Comment:
Reason For Exam: Back pain, SOB, syncope
09/25/25 20:10
Electrocardiogram (*1) Urgent
Reason for Study: Shortness of Breath
EKG- Treatment ONCE
CR Chest - 2 Views Urgent
Comment:
Reason For Exam: SOB
09/25/25 21:[address] Non Medication Order As Directed
Physician Order: PTT 6 hours after initial start of Heparin infusion
Above order entered?: Yes
09/25/25 21:40
PTT Urgent
Comment: Obtain baseline before beginning heparin infusion if not already collected
09/25/25 21:45
Heparin 96702 Units/250 ml 25,000 units in 250 ml IV PER PROTOCOL
Weight to be used for heparin protocol in kilograms (kg):: 99.79
Protocol:: DVT/PE
PTT Goal Range to be used:: PTT 73 to 111 seconds
Order type:: Initial
INITIAL Infusion Dose (UNITS/KG/hr) & then follow protocol:: 18 units/kg/hr
Infusion Dose in UNITS/hr & then follow protocol (UNITS/hr):: 1,800
INFUSION RATE in mL/hr & then follow protocol (mL/hr):: 18
For DVT/PE algorithm, re-bolus for low PTT?: Yes
PTT less than or equal to 64 seconds:: Re-bolus 80 units/kg (max 10,000units). Increase by 400 units/hr
(+ 4mL/hr)
PTT 64.1 to 72.9 seconds:: Re-bolus 40 units/kg (max 5,000 units). Increase by 200 units/hr
(+ 2mL/hr)
PTT 73 to 111 seconds:: Target Range. No change in rate.
PTT 111.1 to 130.9 seconds:: Decrease rate by 200 units/hr (- 2 mL/hr)
PTT 131 to 199.9 seconds:: HOLD for 1 hr. Then decrease by 300 units/hr (- 3mL/hr)
PTT greater than or equal to 200 seconds:: HOLD for 2 hrs & Notify Provider. Then decrease by 400 units/hr
(- 4mL/hr)
Lab follow-up:: Each change, PTT q6h until 2 consecutive are therapeutic. Then
PTT daily.
09/25/25 21:57
Heparin 8,000 units IV NOW STA
09/25/25 22:09
Heparin 4,000 units IV PRN PRN
Heparin 8,000 units IV PRN PRN
09/25/25 22:14
Admit/Transfer Patient As Directed
Co-Sign Provider:
Level of Care: Inpatient admission
Assign to:: ICU
Physician / Group: Yessenia
Transfer to: ICU
Diagnosis: submassive PE
Reason for Hospitalization: acute pulmonary embolism
Expected length of stay greater than two midnights?: Yes
ELOS- Estimated Length of Stay in days: 2
I certify the patient meets the requirements for IP care: Yes
09/25/25 22:15
PRN Pain Medication Management As Directed
May give lesser potent ordered pain med per pt: Yes
preference::
Protocol:: Medication orders for pain may be administered in a
manner that supports deferring to patient preference
when the pt is:
- Requesting an ordered lesser potent pain medication.
Least to most potent pain medications are defined
as: acetaminophen < NSAID < tramadol < opioids
(morphine, oxycodone, hydromorphone).
- Requesting a lesser dose of the same medication IF
ORDERED.
- Requesting a less intrusive route of administration
if both routes are prescribed by the provider (PO <
IV).
09/25/25 22:16
Code Status As Directed
Resuscitation Status: Full Code
09/25/25 22:25
COVID-19 Antigen Stat
Source: Nasal Swab
09/26/25 01:19
Acetaminophen [Tylenol] 650 mg PO Q4HPRN PRN
HYDROmorphone [Dilaudid] 0.5 mg IV Q4HPRN PRN
Lactated Ringers [Lr] 1,000 ml IV 75 mls/hr
09/26/25 01:19
Echo 2D MMode Color/Doppler Routine
Reason for Study: pulmonary embolism
IRAD CONSULT Routine
Consulting Provider: Everette Evans
Was physician already notified: Yes
Procedure being ordered, including laterality if applicable: possible thrombolysis for submassive pe
Acknowledgement that appropriate orders are entered: Yes
PULMONARY CONSULT Routine
Consulting Provider: Michael Holden
Was physician already notified: Yes
Heparin Protocol- PTT Orders As Directed
PTT per Heparin protocol: -Obtain CBC and baseline PTT - if not already collected.
-Obtain PTT 6 hours from start of infusion. Then, every 6 hours until 2 consecutive
PTT's are therapeutic. Then, PTT Daily.
-With each rate change, obtain PTT every 6 hours until 2 consecutive PTT's are
therapeutic. Then, PTT Daily.
Activity As Directed
Activity Level: With Assistance
Bladder Scan As Directed
Follow Bladder Retention/Intermittent Cath Algorithm?: Yes
Frequency: Per Retention Algorithm
Comment: as per intermittent urinary catheter algorithm
Bladder Scan As Directed
Follow Bladder Retention/Intermittent Cath Algorithm?: Yes
PRN if no void in __ hours: 6
Frequency: Per Retention Algorithm
If Bladder Scan Result >: 400
then:: Straight cath
Intake/ Output As Directed
Frequency: Per unit guidelines
Notify MD As Directed
Notify physician if: PTT is greater than or equal to 200.
Straight Cath As Directed
Frequency: Per Retention Algorithm
Additional Instructions: as per intermittent urinary catheter algorithm
Straight Cath As Directed
Frequency: Per Retention Algorithm
Additional Instructions: straight cath as needed per acute urinary retention algorithm for 24 hrs
Additional Instructions: for bladder scan greater than 400 mL
Vital Signs As Directed
Frequency: Per unit guidelines
O2 Therapy [RESP] Routine
Nasal Cannula Liter Flow: 2 LPM
Titrate/Wean O2 to maintain O2 sat greater than (%): 90
Pulse Ox/cont/shift [RESP] Routine
Quantity: 1
Special Instructions: check O2 Sat Q8 hours and at each change in oxygen liter flow and FiO2
US Periph Venous LOWER Ext Jaya Routine
Comment:
Reason For Exam: DVT/PE
09/26/25 04:00
PTT Urgent
Troponin I Q8H
09/26/25 06:00
Type+Screen IN AM
Electrocardiogram (*1) IN AM
Reason for Study: Other
Other Reason for Exam: pulmonary embolism
Regular
09/26/25 08:00
Docusate Sodium [Colace] 100 mg PO BID
Levetiracetam [Keppra] 1,000 mg PO BID
Pantoprazole [Protonix] 40 mg PO DAILY
Primidone [Mysoline] 750 mg PO BID
09/26/25 12:00
Troponin I Q8H
09/27/25 06:00
Complete Blood Count/No Diff Q2D
Comment: notify provider: Platelet count < 130,000 or decrease by 50% from baseline
09/29/25 06:00
Complete Blood Count/No Diff Q2D
Comment: notify provider: Platelet count < 130,000 or decrease by 50% from baseline
10/01/25 06:00
Complete Blood Count/No Diff Q2D
Comment: notify provider: Platelet count < 130,000 or decrease by 50% from baseline
10/03/25 06:00
Complete Blood Count/No Diff Q2D
Comment: notify provider: Platelet count < 130,000 or decrease by 50% from baseline
10/05/25 06:00
Complete Blood Count/No Diff Q2D
Comment: notify provider: Platelet count < 130,000 or decrease by 50% from baseline
10/07/25 06:00
Complete Blood Count/No Diff Q2D
Comment: notify provider: Platelet count < 130,000 or decrease by 50% from baseline
10/09/25 06:00
Complete Blood Count/No Diff Q2D
Comment: notify provider: Platelet count < 130,000 or decrease by 50% from baseline
10/11/25 06:00
Complete Blood Count/No Diff Q2D
Comment: notify provider: Platelet count < 130,000 or decrease by 50% from baseline
Abnormal Lab Results
09/25/25
20:05
MCV 104.0 H fL
(81.0-99.0)
MCH 34.9 H pg
(27.0-31.0)
MPV 10.7 H fL
(7.4-10.4)
Sodium 133 L mmol/L
(135-145)
Glucose 153 H mg/dl
(70-99)
AST 45 H U/L
(14-36)
ALT 39 H U/L
(0-35)
Troponin I 1.250 H* ng/ml
09/25/25 20:05
09/25/25 20:05
Vital Signs
Initial and Last Documented VS:
Initial Vital Signs
Pulse Resp BP Pulse Ox
96 26 106/76 95
09/25/25 19:29 09/25/25 19:29 09/25/25 19:29 09/25/25 19:29
Last Documented Vital Signs
Temp Pulse Resp BP Pulse Ox
98.0 F 85 14 100/73 98
09/25/25 23:36 09/26/25 00:55 09/26/25 00:55 09/26/25 00:55 09/26/25 00:55
<Katty Ellison PA-C - Last Filed: 09/26/25 01:55>
MDM/Problems Addressed
Differential Diagnosis Includes:
Not limited to: Pulmonary embolism, pneumothorax, vasovagal syncope, anemia, acute coronary syndrome, congestive heart failure, etc.
MDM/Problems Addressed:
Patient is a 65-year-old female with history of epilepsy who presents to the emergency department with 1 day of shortness of breath following syncopal event last night. She has had significant exertional dyspnea with minimal activity today. She
does have somewhat significant back pain bilaterally however tells me that this is chronic and unchanged. No chest pain. No new swelling or pain in lower extremities. No PE risk factors. Patient mildly tachypneic and tachycardic on arrival
however not hypoxic. She is normotensive and afebrile. On exam�she appears to have mildly increased work of breathing however lungs clear. Cardiac exam reveals regular rate and rhythm. No reproducible back pain on exam. Lower legs with
bilateral nonpitting edema which she states is unchanged.
Differential as above. No infectious symptoms to suggest underlying pneumonia or bronchitis. With acute onset shortness of breath after syncopal event concern would be pulmonary embolism, acute coronary syndrome, or potential posttraumatic
pneumothorax following syncope, although there is no evidence of traumatic injury on exam.
Will obtain EKG, basic labs, troponin, proBNP. Will obtain chest x-ray to rule out pneumothorax and then plan to check CT PE to rule out pulmonary embolism.
Update: Labs reviewed. CBC unremarkable. Chemistry with mild transaminitis. Troponin elevated to 1.250 with BNP of 6360. EKG reveals normal sinus rhythm at 90 bpm with T wave inversions noted in anterior and lateral leads. Chest x-ray was
reviewed by me which shows no evidence of pneumothorax. Patient sent immediately for CT PE study given history and elevated troponin with ischemic changes noted on EKG. She remains relatively stable although BP soft in 90s/70s. No hypoxia.
Update 9:50 PM: I was contacted by radiologist to reports extensive bilateral pulmonary emboli with significant right heart strain. Patient was immediately placed on heparin bolus/drip in ED. Case was discussed with investment sales assistant, Dr. Holden and
interventional radiology, Dr. Evans. Plan will be for lysis with CDT. Discussed with hospitalist for admission to ICU who accepts patient to their service.
Patient was transferred directly from ED to interventional radiology.
Chronic conditions affecting care:
N/A
Acute Exacerbation and/or Progression of Chronic Illness:
N/A
<Katty Ellison PA-C - Last Filed: 09/26/25 01:55>
*Radiology
Radiology exam reviewed: preliminary read by ED provider (Chest x-ray reviewed by me-no pneumothorax) and radiology read reviewed
*Pulse Oximetry
SaO2: 95
Oxygen Mode of Delivery: Room air
Patient hypoxic: no
*EKG
Interpreted by ED Provider?: Yes
EKG Intrepretation Date: 09/26/25
Interpretation: abnormal
Comparison EKG: changes noted
Heart Rate: 90
Rate: normal
Rhythm: sinus
[place]: normal axis
Interval: normal QT interval
QRS Pattern: normal QRS
Ischemia: T-wave inversion (T wave inversions in inferior and lateral leads)
*[place] Interpretation
Rate: normal
Interpretation: abnormal
Heart Rate: 88
Rhythm: sinus
<Santiago Salcedo MD - Last Filed: 09/25/25 23:25>
*Critical Care Note
Total Time (30-74mins, 75-104mins- exclusive of procedures): 31
comment:
Critical care statement: A total of 31 minutes of critical care time was provided for this patient. This includes management of unstable vital signs, evaluation of the patient at bedside, frequent reassessment, discussion with
consultants/hospitalist, and review of pertinent medical records. This time was separate from time utilized to perform any aforementioned documented procedures
<Katty Ellison PA-C - Last Filed: 09/26/25 01:55>
Patient Management
Discussion with other providers: Hospitalist, Capping Machine Operator (Case discussed with pulmonology and interventional radiology) and Radiologist (Case discussed with radiologist)
Escalation/DeEscalation of care consider admission/obs:
Admit to ICU plan for CDL with IR
ED Attending Note
<Katty Ellison PA-C - Last Filed: 09/26/25 01:55>
-
Portions of this chart may have been created with voice recognition software.� Occasional wrong word or��sound alike� substitutions may have occurred due to the inherent limitations of voice recognition software.
<Santiago Salcdeo MD - Last Filed: 09/25/25 23:25>
ED Attending Note
Patient seen and examined by attending physician: Yes
ED Attending Note:
I have seen and evaluated the patient with a [id number] encounter. I have spoken to the advance practicer provider and involved in the medical history, the physical exam, medical decision making.
Evaluation and management service: agree unless noted differently below.
Results interpretation: agree unless noted differently below.
Focused HPI: 65-year-old female with history of epilepsy presents to the ER for evaluation of shortness of breath and mid back pain. Patient reports onset of back pain last night�she says that the pain was bilateral and very intense in the mid to
upper back. She says that she leaned over the bed to try and get some relief from the pain and witnessed her having a syncopal episode. Since that time she has had severe shortness of breath and ultimately came to the ER for evaluation.
She denies any chest pain. She has had some swelling in her legs somewhat worse on the left recently.
Physical exam: Awake and alert, nontoxic. Normotensive, heart rate 90s to 100, mild tachypnea but no hypoxia. Lungs sound clear bilaterally. She does have bilateral lower extremity edema somewhat worse on the left.
Medical Decision Makin-year-old female presents to the ER for evaluation of back pain and shortness of breath. Vitals and exam as above. Her EKG shows nonspecific ST changes. Her labs were sent off including a CBC and a CMP which showed no
clinically significant abnormalities. Her troponin is markedly elevated at 1.2 with a proBNP of 6300. Chest x-ray showed no acute disease she was sent for a CT chest which showed bilateral pulmonary embolism on my review. PERT alert activated.
PA discussed with pulmonology who recommended discussing with [facility] regarding thrombolysis for this patient. Case discussed with hospitalist for ICU admission.
Discharge Plan
Departure
Patient Disposition: Admit
Date of Disposition: 09/25/25
Time of Disposition: 21:47
Admit to doctor: Yessenia
Presentation/result/management discussed w/ accepting MD/DO: Hospitalist
Discharge Problem:
Pulmonary embolism
Interventions
Interventions:
*Risk Screen - Suicide Last Done: 09/25/25 19:29
*General Assessment Last Done: 09/25/25 19:29
*Neglect/Abuse Screening Last Done: 09/25/25 19:29
*ED- Fall Risk Assessment Last Done: 09/25/25 20:00
*ED COVID-19 Vaccine History Last Done: 09/25/25 19:29
*ED Influenza Vaccine History Last Done: 09/25/25 19:29
*Nursing Disposition Last Done: 09/25/25 23:19
ED- Cardiac Assessment Last Done: 09/25/25 19:50
ED- Pulmonary Assessment Last Done: 09/25/25 19:50
Discharge Date and Time
Discharge Date/Time: 09/25/25 23:19
[2025-09-25 20:16] LABS: Hematocrit 43.8 % (37.0-47.0); Hemoglobin 14.7 g/dL (12.0-16.0); Mean Corp Hgb Conc. 33.6 g/dL (33.0-37.0); Mean Corpuscular Volume 104.0 fL (81.0-99.0); Nucleated Red Blood Cells % 0 %; Platelet Count 232 10^3/uL (130-400); Red Cell Dist. Width 12.7 % (11.5-14.5)
[2025-09-25 20:38] LABS: ALT (SGPT) 39 U/L (0-35); AST (SGOT) 45 U/L (14-36); Albumin 4.5 g/dl (3.5-5.0); Alkaline Phosphatase 126 U/L (38-126); Blood Urea Nitrogen 17 mg/dl (7-17); Calcium 9.5 mg/dl (8.4-10.2); Carbon Dioxide 22 mmol/L (22-30); Chloride 102 mmol/L (98-107); Estimated Creatinine Clearance 86 ml/min; Glucose 153 mg/dl (70-99); Potassium 4.6 mmol/L (3.5-5.1); Sodium 133 mmol/L (135-145); Total Protein 7.5 g/dl (6.3-8.2); eGFR > 60.00
[2025-09-25 20:50] LABS: Troponin I 1.250 ng/ml
--- NOTE | 2025-09-25 21:48 | HPS.HSE ---
Family Physician
-
Family Physician: Duc Plunkett
Chief Complaint
-
Shortness of breath
History of Present Illness
This is a 65-year-old female with past medical history significant for epilepsy, recent diagnosis of phenytoin toxicity now discontinued who presents to the emergency department with shortness of breath and a syncopal episode.
Patient reported being in usual state of health up until yesterday when she felt short of breath. She went to sleep and when she awoke this morning she felt weak. When she was in the bathroom she felt she was in her usual self felt very fatigued.
She had dyspnea on exertion. She reported that she was sitting down on the bed and tried to lean forward to relieve back pain when she had a presyncopal episode. Spouse reported that she slipped onto the floor and was unable to get up. She was
not responding for about a 5-minute. Although she had eyes open. Patient herself recalled that she could hear name being called but was unable to respond appropriately due to weakness. This did resolve and patient was able to get back into bed
and daughter head of the information and requested that she come to the emergency department.
Patient denies any prior episodes of chest pain. She denies any palpitations or lightheadedness or dizziness. She had no recent travel. She denies any recent cold or flulike symptoms. She denies any sick contacts. Patient was last in the
hospital in July denied any recent surgeries. She denies any lower extremity swelling. She denies any prior history of venous thromboembolism. She denies any family history of clots.
In the department patient was afebrile, blood pressure was 90/74 with a pulse rate of 92 and satting 93% on room air. Chest x-ray was clear. ECG shows a sinus rhythm at rate of 98 with T wave inversions in the anterior lateral leads and S1Q3T3
pattern. Troponin was elevated at 1.2. BNP was elevated at 1660. CBC was unremarkable. Electrolytes BUN/creatinine were all in normal range.
CT chest showing extensive bilateral pulmonary embolism with significant right heart strain.
2. Hypoattenuating right thyroid lobe nodule measures up to 1.9 cm. Recommend outpatient workup with dedicated thyroid ultrasound if not previously performed.
Medical History
Past Medical History
Past Medical History: Reports Other (epilepsy,)
Past Surgical History: Reports None
Social History
Tobacco: Non-smoker
Alcohol: Occasional
Drug: None
Family History
Family History: Not pertinent
Allergies / Home Medications
Allergies reflects when Allergies were last updated in [facility].
Home Medications with original date entered in [facility]
Allergy/Medication List:
Allergies
Allergy/AdvReac Type Severity Reaction Status Date / Time
No Known Allergies Allergy Verified 09/25/25 19:29
Home Medications
primidone 250 mg tablet 750 mg PO BID Seizures 07/24/25
levetiracetam 500 mg tablet 1,000 mg (2 x 500 mg) PO BID 30 days #120 tabs 07/28/25
Review of Systems
-
Constitutional: Reports No Symptoms
EENT: Reports No Symptoms
Respiratory: Reports Trouble Breathing
Cardiac: Reports No Symptoms
Abdomen/GI: Reports No Symptoms
: Reports No Symptoms
Musculoskeletal: Reports No Symptoms
Skin: Reports No Symptoms
Neurological: Reports No Symptoms
Endocrine: Reports No Symptoms
Hematologic/Lymphatic: Reports No Symptoms
Psych: Reports No Symptoms
Physical Exam
Vital Signs
Vital Signs
Pulse Resp BP Pulse Ox
92 24 99/74 93
09/25/25 21:00 09/25/25 21:00 09/25/25 21:00 09/25/25 21:00
Physical Exam
General: Well Developed, Well Nourished and No Apparent Distress
HEENT: NormoCephalic, Moist mucous membranes and Atraumatic
Respiratory: Clear
Cardiac: S1/S2 and Regular Rhythm; No Murmur or Rub
GI: Soft, Non Tender, Non Distended and Normal Bowel Sounds; No Organomegaly
Rectal: Deferred by Provider
Musculoskeletal: No Clubbing, No Cyanosis and No Edema
Skin: No Rash
Neuro: AO x 3 and Nonfocal/grossly intact
Laboratory Results
-
09/25/25 20:05
09/25/25 20:05
Laboratory Results
Total Bilirubin 0.7 mg/dl (0.2-1.3) 09/25/25 20:05
AST 45 U/L (14-36) H 09/25/25 20:05
ALT 39 U/L (0-35) H 09/25/25 20:05
Alkaline Phosphatase 126 U/L (38-126) 09/25/25 20:05
Troponin I 1.250 ng/ml H* 09/25/25 20:05
Data Reviewed
-
Diagnostic Radiology: Image Personally Visualized and interpreted and Report Reviewed by me
CT Scan: Report Reviewed by me
Medical Tests (Nuc Med, Echo, EKG etc): Image Personally Visualized and interpreted
Lab Data: Labs Reviewed by me
Old Records: Reviewed
Impression/Plan
-
IMPRESSION:
65-year-old past medical history significant for epilepsy, ataxia who presents to the emergency department with shortness of breath and a syncopal episode and was found to have a submassive PE with right heart strain and elevated troponin. Blood
pressure stable and patient is not requiring supplemental oxygen with oxygen saturation of around 93%.
PLAN:
Pulmonary embolism -acute bilateral pulmonary embolism with extensive clot burden, right heart strain and elevated troponin status post PERT alert. Severe right heart strain given trop elevation and BNP 6500. No prior known heart disease. No
known provoking factors. No personal history of malignancy. No personal or family hx of thromboembolism or clotting disorders. Currently no chest pain.
- admit to imu
- npo for now, maintenance fluids, diet in am
- pulmonary and interventional alerted
- started heparin gtt
- likely candidate for thrombolysis
- echo in am, trend troponins, cardiology consult
- rhianna LE doppler u/s
- no clear provoking fingings on history or physical, indefinite long-term ac
- outpatient hypercoagulable work up
- continue keppra and primidone
Code status - Full code
[2025-09-25 22:00] LABS: APTT 27.5 Sec (23.4-35.0)
[2025-09-25] MEDS: HEPARIN 25000 UNITS/250 ML IV (22:01)
[2025-09-25] MEDS: HEPARIN 8000 UNITS IV (22:01)
[2025-09-26] VITALS (35 sets, daily range): BP systolic 69–134; BP diastolic 50–104; BMI 35.3
--- NOTE | 2025-09-26 00:48 | W.PN.IRAD.PR ---
Procedure Note
-
Post pulm arteriography, pressure measurements, initiation of thrombolysis infusion. Mean pressures 15 mmHg left PA, 16 mmHg right PA. Alteplase infusion via 7 Fr catheter positioned in right PA, 1 mg/hr. Heparin infusion via PIV, 400 units/hr. The
7 Fr catheter is occlusive in the 7 Fr CF vein sheath, no sheath infusion. No immediate complications.
[2025-09-26] MEDS: LR 1000 IV ×2 (01:47→14:22)
[2025-09-26 01:51] LABS: Glucose - Point of Care 97 mg/dl (70-99)
[2025-09-26 02:04] LABS: Hematocrit 42.5 % (37.0-47.0); Hemoglobin 14.5 g/dL (12.0-16.0); Mean Corp Hgb Conc. 34.1 g/dL (33.0-37.0); Mean Corpuscular Volume 103.2 fL (81.0-99.0); Platelet Count 179 10^3/uL (130-400); Red Cell Dist. Width 12.8 % (11.5-14.5)
[2025-09-26 02:10] LABS: COVID-19 Antigen Negative (Negative)
[2025-09-26 02:26] LABS: APTT > 200 Sec (23.4-35.0)
--- NOTE | 2025-09-26 02:32 | PTCARENOTE ---
Addendum entered by Graciela Leal RN 09/26/25 03:16:
Right lower extremity sheath is intact without hematoma. Residual blood from procedure noted on one of the sheath catheter. Okay per IRLOUISE RN, Edilia. Bed alarm in use.
Original Note:
Received patient in [facility] drowsy but easily arousable. Handoff report from [facility] RN completed. Alteplase infusing at 1 mg/hr (100 ml/hr), and heparin gtt at 400 units/hr. Weak doppler pulses are present to bilateral DPs. Bilateral lower extremities
are warm. Placed patient on monitor and transported to [facility]. Plan of care for the remainder of the shift reviewed with the patient. Questions and concerns addressed regarding medications and vital signs. VSS on the monitor with HR in the 80s.
Discussed activity/ bed restrictions with the patient. SpO2 at 98 % on 2L midflow oxygen. Breath sounds are CTA. Abd is round and obese. Fabrizio explained and placed. LR at 75 ml/hr. Labs drawn and sent.Call esquivel is with reach.
[2025-09-26 04:49] LABS: Hematocrit 39.1 % (37.0-47.0); Hemoglobin 13.0 g/dL (12.0-16.0); Mean Corp Hgb Conc. 33.2 g/dL (33.0-37.0); Mean Corpuscular Volume 105.7 fL (81.0-99.0); Platelet Count 172 10^3/uL (130-400); Red Cell Dist. Width 12.8 % (11.5-14.5)
[2025-09-26 05:27] LABS: Blood Urea Nitrogen 12 mg/dl (7-17); Calcium 8.3 mg/dl (8.4-10.2); Carbon Dioxide 21 mmol/L (22-30); Chloride 107 mmol/L (98-107); Estimated Creatinine Clearance 116 ml/min; Glucose 97 mg/dl (70-99); Magnesium 2.0 mg/dl (1.6-2.3); Potassium 4.3 mmol/L (3.5-5.1); Sodium 136 mmol/L (135-145); Troponin I 0.585 ng/ml; eGFR > 60.00
--- NOTE | 2025-09-26 06:28 | PTCARENOTE ---
Patient remains stable. No hematoma to right groin sheath. Doppler pulses to bilateral DPs remain faint. Warm blankets placed as the pt's feet were cool to the touch. Skin color. Pt continued to be encouraged to remain flat in bed. Pt straight cath
for 350 for discomfort. Remains on 2L O2.
[2025-09-26 07:01] LABS: Hepatitis C Antibody Negative (Negative)
--- NOTE | 2025-09-26 07:28 | CON.INTV ---
Consultation
Consultation Request
Date/Time Consultation Requested: 09/26/2025-7 AM
Date/Time Consultation Performed: 09/26/2025-7:30 AM
Requesting Provider: Hospitalist
Performing Provider: Dr. Holden
Reason for Consultation: Shortness of breath/syncope/pulm embolism
Medical History
-
Chief Complaint: Shortness of breath and syncope
History of Present Illness:
65-year-old non-smoking obese female with a history of epilepsy, phenytoin toxicity with chronic back pain, somewhat sedentary with no miscarriages and questionable family history of sister with clot presented with syncope the night before and
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
09/26/2025. The patient had significant shortness of breath with minimal exertion, no chest pain, pleurisy, hemoptysis, and had episode of syncope noted to have some tachycardia and hypotension as well as hypoxemia. Patient currently feels improved
after lysis and heparin. She denies any shortness of breath at rest on oxygen, chest pain, chest tightness, chest congestion, productive cough, abdominal pain, nausea, weakness or progressive leg swelling. She does complain of back pain.
Past Medical History
Past Medical History: None (Epilepsy. Phenytoin toxicity. Obesity.)
Social History
Tobacco: Non-smoker
Alcohol: Occasional
Drug: None
Personal:
Living: With Family
Occupational Exposures: No known asbestos exposure
Environmental Exposures: no known tuberculosis exposure
Family History
Family History: Reviewed & Not Pertinent (Sister with 'hole in the heart' and possible clot)
Allergies / Home Medications
Allergies
Allergy/AdvReac Type Severity Reaction Status Date / Time
No Known Allergies Allergy Verified 09/25/25 19:29
Home Medications
�Medication �Instructions �Recorded �Confirmed �Last Taken �Type
primidone 250 mg tablet 750 mg PO BID Seizures 07/24/25 07/24/25 Unknown History
levetiracetam 500 mg tablet 1,000 mg (2 x 500 mg) PO BID 30 07/28/25 Unknown Rx
days #120 tabs
Review of Systems
-
Unable to Obtain full review of systems at this time due to: Other ( per HPI)
Vitals / Labs / Diagnostic Testing
Vital Signs
Temp Pulse Resp BP Pulse Ox
98.1 F 73 14 109/66 95
09/26/25 07:12 09/26/25 04:45 09/26/25 04:45 09/26/25 04:00 09/26/25 04:45
Lab Data
09/26/25 04:38
Laboratory Results
09/25/25 09/26/25
21:40 01:50
APTT 27.5 > 200 H*
Diagnostic Testing:
Physical Exam
-
Exam:
Well-nourished and well-developed in no apparent distress
HEENT-atraumatic, normocephalic
Neck-supple, no JVD, no bruit
Heart regular with no increased P2 or RV heave
Chest-clear to auscultation, no wheezes, crackles
Back-no tenderness
Abdomen-soft, nontender, nondistended, no hepatosplenomegaly
Extremities-no cyanosis, clubbing, bilateral lower extremity edema, negative Homans' sign
Integument-intact, no rashes, lesions or ecchymosis
Neurology-alert and oriented, nonfocal motor and sensory exam
Assessment
-
65-year-old non-smoking obese female with a history of epilepsy, phenytoin toxicity with chronic back pain, somewhat sedentary with no miscarriages and questionable family history of sister with clot presented with syncope the night before and
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
09/26/2025.
Significant clot burden unprovoked pulmonary embolism with syncope, hypoxemia, tachycardia and hypotension
Significant right heart strain, elevated troponin, elevated proBNP
PESI [id number] IV high risk
Status post catheter directed lysis emergently 09/26/25-midnight
Right thyroid nodule-incidentally noted 1.9 cm-dedicated thyroid ultrasound recommended
Conditions present prior to admission:
Epilepsy.
Phenytoin toxicity.
Obesity.
Plan
Patient will be admitted to medical intensive care unit for close observation
Supplemental oxygen as needed
Aspiration precautions
Incentive spirometry
CT chest personally reviewed-see below
Check echocardiogram
Lower extremity ultrasound negative for DVT
Recommend eventual hypercoagulable workup-unprovoked clot
Full PESI summarized above
Heparin drip or Lovenox 1 mg/kg every 12 hours
Benefits and risks of thrombolytics therapy were reviewed
The patient had some tachycardia, hypotension, syncopal episode, marginal saturations with significant clot burden, troponin elevation, proBNP elevation and benefits of thrombolytics outweigh the risks-thrombolytic therapy via interventional
radiology catheter directed method and possible suction thrombectomy is recommended
Interventional radiology consulted and performed catheter directed thrombolytic therapy midnight 09/25/2025
Repeat angiogram and potential additional 24 hours of thrombolytics 09/26/2025-pending
Bedrest while receiving thrombolytics
DVT prophylaxis-on full anticoagulation
Early nutrition
Early mobilization
Obstructive sleep apnea suspected- has sleep apnea and she is aware, patient snores, feels unrefreshed is tired during the daytime
Outpatient pulmonary/sleep disorders follow-up
Outpatient hematology follow-up
Outpatient appropriate malignancy screening including colonoscopy
Outpatient thyroid ultrasound
Critical care statement: A total of 65 minutes of critical care time was provided for this patient today. This includes management of unstable vital signs, evaluation for thrombolytic therapy, management of large pulmonary embolism, evaluation of
the patient at bedside, reviewing the patient's pertinent medical records including radiographs, microbiology, laboratory evaluations, and discussion with primary team, consultants, pharmacy, and critical care nursing.
Diagnostic data:
CT chest 09/25/2025-extensive bilateral right greater than left pulmonary emboli with some proximal clots, no saddle and significant right heart strain, hypoattenuating right thyroid lobe nodule measuring 1.9 cm
Chest x-ray 09/25/2025-NAD
Lower extremity ultrasound 09/26/2025-no evidence for DVT
Data Reviewed
-
EKG: Report reviewed by me
Radiology: Image personally visualized and interpreted and Report reviewed by me
CT Scan: Image personally visualized and interpreted and Report reviewed by me
Medical Tests (Nuc Med, Echo etc): Report reviewed by me
Labs: Labs reviewed by me
Old Records: Reviewed
Critical Care Time (in minutes): 65
[2025-09-26 07:38] LABS: INR 1.12; PT 14.7 Sec (11.4-14.6)
[2025-09-26 07:39] LABS: APTT 33.3 Sec (23.4-35.0)
--- NOTE | 2025-09-26 08:00 | PTCARENOTE ---
Received pt @ change of shift. Pt. w R fem venous sheath with alteplase infusion- hand off completed w off going RN- see flow sheet. Pt. drowsy, awakens to verbal stim; ox3, forgetful @ x's, odd affect, slurred speech. C/O severe back pain,
medicated w prn- see JAN. SR w prolonged QT on monitor. SpO2 98% on 2LNC. Auscultated dim breath sounds posteriorly. +BS, abd soft/round/obese. Cont b/b; bedpan prn. #20 R AC w heparin gtt- see flow sheet and #20 R wrist w LR @ 75mL/hr; #20 L FA
patent, dressing c/d/i. Pt. to remain flat while sheath in place; plan for IR @ approx 1200, pt. aware of plan of care. Call esquivel placed w in reach.
[2025-09-26] MEDS: KEPPRA 1000 MG PO ×2 (08:51→19:29)
[2025-09-26] MEDS: MYSOLINE 750 MG PO ×2 (08:51→19:29)
[2025-09-26] MEDS: PROTONIX 40 MG PO (08:51)
[2025-09-26] MEDS: COLACE 100 MG PO ×2 (08:51→19:29)
[2025-09-26] MEDS: DILAUDID 0.5 MG IV ×2 (08:52→14:04)
[2025-09-26] MEDS: CATHFLO/ACTIVASE INF CATH (10:34)
[2025-09-26] MEDS: CATHFLO/ACTIVASE 1000 MG INF CATH (10:38)
--- NOTE | 2025-09-26 10:45 | PTCARENOTE ---
Heparin infusion placed on hold per MD orders @ 1045- see flow sheet.
--- NOTE | 2025-09-26 12:05 | PTCARENOTE ---
Addendum entered by Cami Adrian RN 09/26/25 13:10:
R femoral vein sheath removed by IR. TPA infusion via sheath d/c'd in IR. Pt. transported back up to rm 3370, no adverse events on transport. Pt. to remain flat x2 hrs. Informed on plan of care. Call esquivel in reach.
Original Note:
Pt. transported via bed down to IR @ time; awaiting report from IR RN.
--- NOTE | 2025-09-26 12:46 | W.PN.HOSP.TC ---
Addendum entered and electronically signed by Waleska Cr MD 09/26/25 14:01:
I saw and evaluated the patient independently. I reviewed and discussed the resident�s note and agree with findings and plan as documented by Dr. Olmedo.
GENERAL: well developed, well nourished, obese female in no apparent distress
HEENT: NC/AT--O2 NC in place
HEART: regular rate and rhythm, +S1, +S2
LUNGS : clear to auscultation bilaterally
ABDOM: soft, nontender, nondistended, + bowel sounds
EXT: no cyanosis, clubbing, or edema
NEUROLOGIC: sleepy (just received IV pain meds)
Submassive pulmonary embolism due to unknown cause (although presumed due to being sedentary from back pain? No recent surgeries, family history of clotting disorders, prolonged immobilization, travel, cancer history, OCP use, smoking )--CT with
extensive bilateral PE with right heart strain by CT--no ECHO but troponin elevated (and decreasing)--apprec pulm/IR--s/p lytic therapy--EKG showed classic Q1S3T3 pattern-- peripheral vascular ultrasound negative for DVT--now on heparin drip--will
eventually need conversion to Eliquis--will need hypercoagulable workup as well once off Eliquis (unless considering lifelong therapy)--echo pending, CM to romero eliquis
Seizure disorder--cont keppra and primidone
Elevated transaminases- AST is 45 and ALT is 39-- There is no abdominal tenderness, jaundice, GI upset. Continue to observe.
Chronic lower back pain--- Complaining of pain on movement especially on flexion or sudden movements-- No midline tenderness, slight paravertebral tenderness which makes me think musculoskeletal strain-- continue on Tylenol and Dilaudid. Continue to
observe for worsening of back pain in a few hours and if it worsens then we can increase dose of Dilaudid.
DVT proph-- heparin gtt
code status--Full code
Total Critical Care Time 31 minutes. I was immediately available to the patient and staff. I personally examined, reviewed labs, diagnostic images/reports, interpretations, treatment plans, discussed patient care with other providers and family
or caregivers (if patient is unable to make decisions), entered orders as appropriate and documented the medical record.
Original Note:
Today's Communication/Plan
-
- f/u with pulmonology, washer machine, and IR
- continue to observe vitals
- adjust pain medications for back pain
Assessment / Plan
Assessment / Plan
Submassive embolism due to unknown cause:
- Patient came in with complaint of syncopal episode, nausea, dyspnea on exertion, fatigue, weakness
- No recent surgeries, family history of clotting disorders, prolonged immobilization, travel, cancer history, OCP use, smoking
- Chest CT showed extensive bilateral pulmonary embolism with significant right heart strain (with stable vitals this indicates she is a submassive PE), EKG showed classic Q1S3 T3 pattern, peripheral vascular ultrasound negative for DVT
- Troponin is 1.250 on 09/25/2025 on admission and today on 09/26/2025 it is 0.585, continue to observe. Pro BNP elevated at 6360 on 09/25/25, this is likely due to right ventricular stretch caused by RV strain.
- Patient started on thrombolysis infusion today by interventional radiology with alteplase infusion.
- Continue patient on heparin drip, then when we transition to DOAC she is probably going to be on DOAC indefinitely
- Pulmonary consulted and ICU consulted
- Echocardiogram pending
- Ordered PT/OT
- Continue patient on regular diet
- Continue IV fluids
- Incentive spirometry
Epilepsy:
- Continue on Keppra and primidone home doses
- Keppra level is pending
Elevated transaminases:
- AST is 45 and ALT is 39
- There is no abdominal tenderness, jaundice, GI upset. Continue to observe.
Chronic lower back pain:
- Complaining of pain on movement especially on flexion or sudden movements
- No midline tenderness, slight paravertebral tenderness which makes me think musculoskeletal strain
- continue on Tylenol and Dilaudid. Continue to observe for worsening of back pain in a few hours and if it worsens then we can increase dose of Dilaudid.
DVT ppx: heparin gtt
Full code
Anticipated Discharge: 24 - 48 hours
Subjective/Interval History
-
Date of Service: September 26, 2025
No acute overnight events
Patient is stating residual shortness of breath and chronic lower back pain. No headache, nausea, vomiting, chest pain, syncope, headedness, dyspnea, diarrhea, abdominal pain, palpitations, weakness, numbness, tingling, altered mental status.
Objective Data
-
Labs:
Laboratory Results
09/26/25 09/26/25 09/26/25
01:50 04:38 07:09
WBC 7.1 6.2
Hgb 14.5 13.0
Hct 42.5 39.1
Plt Count 179 D 172
PT 14.7 H
INR 1.12
APTT > 200 H* 33.3
Sodium 136
Potassium 4.3
Chloride 107
Carbon Dioxide 21 L
BUN 12
Creatinine 0.6
Glucose 97
Calcium 8.3 L
09/26/25 09/26/25
12:00 18:00
WBC Pending Pending
Hgb Pending Pending
Hct Pending Pending
Plt Count Pending Pending
PT Pending Pending
INR Pending Pending
APTT Pending Pending
Sodium
Potassium
Chloride
Carbon Dioxide
BUN
Creatinine
Glucose
Calcium
Vital Signs:
Vital Signs
Temp Pulse Resp BP Pulse Ox
98.5 F 69 11 117/64 95
09/26/25 11:09 09/26/25 12:12 09/26/25 12:12 09/26/25 12:12 09/26/25 12:12
I&O
09/25/25 09/26/25 09/27/25
06:59 06:59 06:59
Intake Total 820 / 999 1066 / 1066
Output Total 350 / 350 100 / 100
Balance 470 / 649 966 / 966
Review of Systems
-
History Source: Patient
All other systems: Reviewed and negative
Physical Exam
-
General: Well Developed
Respiratory: Clear to Auscultation
Cardiac: Regular Rhythm and S1/S2
GI: Soft, Nontender, Nondistended and Normal Bowel Sounds
Musculoskeletal: No Clubbing, No Cyanosis and No Edema
Skin: Warm and Dry
Neuro: AO x 3
Psych: Calm
Data Reviewed
-
CT Scan: Report Reviewed by me and Discussed with Physician
Labs: Other (labs not in )
--- NOTE | 2025-09-26 13:03 | W.PN.IRAD.PR ---
Procedure Note
-
Repeat pulm arteriography shows improvement. Pressure ~12mmHg R and 13 mmHg L. Vitals now wnl, troponin decreasing. Thrombolysis infusion terminated. Sheath removed. Resume therapeutic heparin gtt 1530 pm.
[2025-09-26 13:33] LABS: Hematocrit 34.1 % (37.0-47.0); Hemoglobin 11.6 g/dL (12.0-16.0); Mean Corp Hgb Conc. 34.0 g/dL (33.0-37.0); Mean Corpuscular Volume 101.8 fL (81.0-99.0); Platelet Count 151 10^3/uL (130-400); Red Cell Dist. Width 12.8 % (11.5-14.5)
[2025-09-26 14:02] LABS: Troponin I 0.333 ng/ml
--- NOTE | 2025-09-26 15:00 | CM ---
CM attempted to meet with pt earlier in room however pt off floor.
Attempted again to meet with pt, pt sleeping.
CM left non-urgent VM for spouse Kishore at [phone] requesting callback
--- NOTE | 2025-09-26 15:32 | CM ---
CM called pt's pharmacy [facility] [phone] to attempt to identify pt's prescription plan.
Told there is no prescription plan on file only [employer] discount card.
--- NOTE | 2025-09-26 17:47 | PTCARENOTE ---
Assisted w HOB elevated @ 1500 and ordering meal; tolerating intake. Attempted to wean off O2, desaturation into mid 80's; 2L reapplied and recovered back into 90's. Heparin gtt back on @ 1645- see flow sheet; lab times adjusted per gtt
initiation. Pt. assisted OOB x1 into BR and back to bed, gait unsteady. Family @ bedside, updated. Call esquivel in reach.
--- NOTE | 2025-09-26 20:42 | PTCARENOTE ---
report received, assessments per work list. patient denies back pain or dyspnea. c/o being very fatigued. heparin, pulse and site checks completed @shift handoff. bed alarm maintained for patient safety. call esquivel in reach
--- NOTE | 2025-09-26 23:15 | PTCARENOTE ---
Addendum entered by Michelle Mcleod RN 09/27/25 00:16:
heparin gtt placed on hold per orders. potato pancake frier NALLELY notified per protocol. patient assisted to the bathroom. voided yellow urine, assisted back to bed. updated with plan of care
Original Note:
patient sleeping unless disturbed. reassessed. labs sent. results pending. patient denies need to void at this time. call esquivel in reach. bed alarm activated
[2025-09-26 23:19] LABS: Hematocrit 35.1 % (37.0-47.0); Hemoglobin 12.0 g/dL (12.0-16.0); Mean Corp Hgb Conc. 34.2 g/dL (33.0-37.0); Mean Corpuscular Volume 102.0 fL (81.0-99.0); Platelet Count 160 10^3/uL (130-400); Red Cell Dist. Width 12.6 % (11.5-14.5)
[2025-09-26 23:56] LABS: APTT > 200 Sec (23.4-35.0)
[2025-09-27] VITALS (11 sets, daily range): BP systolic 112–137; BP diastolic 57–81; PULSE 78–80; O2SAT 94–95; BMI 36.0
[2025-09-27] MEDS: HEPARIN 25000 UNITS/250 ML IV (02:45)
[2025-09-27] MEDS: LR 1000 IV (02:49)
[2025-09-27 04:15] LABS: Hematocrit 33.2 % (37.0-47.0); Hemoglobin 11.6 g/dL (12.0-16.0); Mean Corp Hgb Conc. 34.9 g/dL (33.0-37.0); Mean Corpuscular Volume 101.8 fL (81.0-99.0); Nucleated Red Blood Cells % 0 %; Platelet Count 152 10^3/uL (130-400); Red Cell Dist. Width 12.3 % (11.5-14.5)
--- NOTE | 2025-09-27 04:29 | PTCARENOTE ---
sleeping unless disturbed, labs sent, assisted to bathroom. pulses and site checks unchanged.
[2025-09-27 04:35] LABS: ALT (SGPT) 25 U/L (0-35); AST (SGOT) 23 U/L (14-36); Albumin 3.1 g/dl (3.5-5.0); Alkaline Phosphatase 80 U/L (38-126); Blood Urea Nitrogen 7 mg/dl (7-17); Calcium 8.0 mg/dl (8.4-10.2); Carbon Dioxide 25 mmol/L (22-30); Chloride 107 mmol/L (98-107); Estimated Creatinine Clearance 118 ml/min; Glucose 93 mg/dl (70-99); Magnesium 1.8 mg/dl (1.6-2.3); Potassium 3.9 mmol/L (3.5-5.1); Sodium 136 mmol/L (135-145); Total Protein 5.6 g/dl (6.3-8.2); eGFR > 60.00
--- NOTE | 2025-09-27 07:51 | W.PN.HOSP.TC ---
Today's Communication/Plan
-
Received alteplase infusion per interventional radiology on 09/26/2025 midnight. Monitored in ICU and downgraded to MedSurg today 09/27/2025.
Discontinued IV fluids, given bilateral lower extremity edema.
Spitting initiating DOAC soon.
Assessment / Plan
Assessment / Plan
Impression
65-year-old past medical history significant for epilepsy (with recent phenytoin toxicity), ataxia who presents to the emergency department with shortness of breath and a syncopal episode and was found to have a submassive PE with right heart strain
and elevated troponin. Blood pressure stable and patient is not requiring supplemental oxygen with oxygen saturation of around 93%.
Received alteplase infusion per interventional radiology on 09/26/2025 midnight. Monitored in ICU and downgraded to MedSurg on 09/27/2025.
HPI
Patient reported being in usual state of health up until 1 day prior to admission when she felt short of breath. She went to sleep and when she awoke in the morning today she felt weak. When she was in the bathroom, she felt very fatigued. She
had dyspnea on exertion. She reported that she was sitting down on the bed and tried to lean forward to relieve back pain when she had a presyncopal episode. Spouse reported that she slipped onto the floor and was unable to get up. She was not
responding for about 5 minutes, although she had eyes open. Patient recalled that she could hear name being called but was unable to respond appropriately due to weakness. This did resolve and patient was able to get back into bed. Daughter heard
of the information and requested that she come to the emergency department.
Patient denies prior chest pain, palpitations, lightheadedness or dizziness. She had no recent travel. She denies any recent cold or flulike symptoms. She denies any sick contacts. Patient was last in the hospital in July. Denied any
recent surgeries. She denies any lower extremity swelling. She denies any prior history of venous thromboembolism. She denies any family history of clots.
ED course
In the department patient was afebrile, blood pressure was 90/74 with a pulse rate of 92 and satting 93% on room air. Chest x-ray was clear. ECG shows a sinus rhythm at rate of 98 with T wave inversions in the anterior lateral leads and S1Q3T3
pattern. Troponin was elevated at 1.2. BNP was elevated at 1660. CBC was unremarkable. Electrolytes BUN/creatinine were all in normal range.
CT chest showing extensive bilateral pulmonary embolism with significant right heart strain.
2. Hypoattenuating right thyroid lobe nodule measures up to 1.9 cm. Recommend outpatient workup with dedicated thyroid ultrasound if not previously performed.
Peripheral vascular ultrasound 09/26/25:
No evidence of deep venous thrombosis in the limited visualized portions of the bilateral lower extremities as described above.
Plan
Submassive embolism due to unknown cause:
:: Patient came in with complaint of syncopal episode, nausea, dyspnea on exertion, fatigue, weakness
:: No recent surgeries, family history of clotting disorders, prolonged immobilization, travel, cancer history, OCP use, smoking
- Chest CT showed extensive bilateral pulmonary embolism with significant right heart strain (with stable vitals this indicates she is a submassive PE), EKG showed classic Q1S3 T3 pattern, peripheral vascular ultrasound negative for DVT
:: No DVT bilaterally on ultrasound
- Troponin is 1.250 on 09/25/2025 on admission and today on 09/26/2025 it is 0.585, continue to observe. Pro BNP elevated at 6360 on 09/25/25. Likely due to right ventricular stretch/strain.
- S/p alteplase infusion into pulmonary artery by interventional radiology 09/26/2025
- Continue heparin drip. Will transition to DOAC (indefinitely).
� Case management has discussed pricing with the patient. The patient does not have a prescription benefit in her health insurance. The cyanide case hardener is able to provide 2 coupons. Eliquis will be about $70 per month for the patient
- Echocardiogram pending
- PT/OT pending. Remember to reorder if patient is downgraded from ICU
- Continue patient on regular diet
- IV fluids not renewed 09/27/2025, due to bilateral lower extremity him on exam, which patient is not sure is different from her usual.
� Wean O2 as tolerated. Encourage incentive spirometry
Pulmonology/ICU consulted
� Heparin drip or Lovenox 1 mg/kg every 12 hours
� Appreciate recs and transitioning to DOAC
� Outpatient follow-up for: Hypercoagulable workup with hematology, ROBERT/sleep disorders workup with pulmonology, malignancy screening (including colonoscopy), thyroid ultrasound
Epilepsy:
- Continue home Keppra and primidone doses
- Keppra level is pending
Elevated transaminases:
:: AST is 45 and ALT is 39
:: No abdominal tenderness, jaundice, GI upset. Continue to observe.
Chronic lower back pain:
:: Complaining of pain on movement especially on flexion or sudden movements
:: No midline tenderness, slight paravertebral tenderness, suggesting musculoskeletal strain
- continue on Tylenol and Dilaudid. Continue to observe for worsening of back pain in a few hours and if it worsens then we can increase dose of Dilaudid.
DVT ppx: heparin gtt
Full code
Anticipated Discharge: 24 - 48 hours
Subjective/Interval History
-
Date of Service: September 27, 2025
No acute events overnight. Patient denies any signs of bleeding cutaneously, in stool, or in urine. Denies nausea and vomiting, chest pain, shortness of breath. She stated she had a turnaround and and a walking exercise short while walking with
supervision. Otherwise, she denies shortness of breath. Had no complaints.
Objective Data
-
Labs:
Laboratory Results
09/26/25 09/27/25 09/27/25
23:09 03:55 06:00
WBC 6.7 5.9
Hgb 12.0 11.6 L
Hct 35.1 L 33.2 L
Plt Count 160 152
APTT > 200 H* Cancelled
Sodium 136
Potassium 3.9
Chloride 107
Carbon Dioxide 25
BUN 7
Creatinine 0.5 L
Glucose 93
Calcium 8.0 L
Total Bilirubin 0.7
AST 23
ALT 25
Alkaline Phosphatase 80
09/27/25 09/27/25 09/27/25
08:00 12:00 18:00
WBC
Hgb
Hct
Plt Count
APTT Pending Cancelled Cancelled
Sodium
Potassium
Chloride
Carbon Dioxide
BUN
Creatinine
Glucose
Calcium
Total Bilirubin
AST
ALT
Alkaline Phosphatase
Vital Signs:
Vital Signs
Temp Pulse Resp BP Pulse Ox
98.7 F 67 22 114/66 96
09/27/25 04:01 09/27/25 06:00 09/26/25 22:00 09/27/25 06:00 09/27/25 06:00
I&O
09/26/25 09/27/25 09/28/25
06:59 06:59 06:59
Intake Total 820 / 999 3954 / 3954
Output Total 350 / 350 700 / 700
Balance 470 / 649 3254 / 3254
Review of Systems
-
History Source: Patient
All other systems: Reviewed and negative
Physical Exam
-
General: Well Developed, Well Nourished, No Apparent Distress, Comfortable and Conversant
HEENT: Normocephalic, Atraumatic, Moist Mucous Membranes, Anicteric, No Ptosis, Nose Appears Normal and Ears Appear Normal
Respiratory: Clear to Auscultation
Cardiac: Regular Rhythm and S1/S2
GI: Soft, Nontender, Nondistended and Normal Bowel Sounds
Musculoskeletal: No Clubbing, No Cyanosis, Edema, Right Lower Extrem and Edema, Left Lower Extrem
Skin: Warm and Dry
Neuro: Awake, Alert, Nonfocal/Grossly Intact and Central Nerve's Intact
Hematologic / Lymphatic: Other (Blood stains on right sleeve of down near IV site. No other blood stains noted.)
Psych: Calm
--- NOTE | 2025-09-27 08:00 | PTCARENOTE ---
Received pt @ change of shift. Pt. drowsy, awakens to verbal stimuli; ox3, anxious @ x's. SR on on monitor. Doppler DP/PT pulses b/l. SpO2 96% on 2LNC Auscultated dim breath sounds throughout. Cont b/b. Assisted into BR and then into chair for
breakfast; tolerating meals. R groing dressing intact; post sheath removal checks completed per protocol- see flow sheet. #20 R hand w LR @ 75mL/hr and heparin gtt infusing. Blood work drawn and sent to lab. Pt. demonstrates understanding of how
to report care concerns and call esquivel in reach.
[2025-09-27] MEDS: COLACE 100 MG PO (08:06)
[2025-09-27] MEDS: KEPPRA 1000 MG PO ×2 (08:06→20:07)
[2025-09-27] MEDS: PROTONIX 40 MG PO (08:06)
[2025-09-27] MEDS: MYSOLINE 750 MG PO ×2 (08:06→20:08)
--- NOTE | 2025-09-27 08:24 | W.PN.INTV ---
Addendum entered and electronically signed by Duke Heaton MD 09/27/25 20:26:
Total time spent today was 58 minutes for this encounter. Time includes reviewing laboratory test/imaging results, reviewing pertinent medical records, obtaining and reviewing medical history, performing an appropriate exam, ordering medications,
tests and procedures. Time also includes documentation of this encounter, coordinating patient care and communicating with other healthcare professionals. Total time does not include separately billed tests performed on this date of service.
Original Note:
Today's Communication / Plan
Recommendations
Transition from heparin drip to NOAC tonight
Case management consult to assess affordability of Eliquis
Repeat echo in 4 to 6 weeks to assess for persistence of pulmonary hypertension and RV dysfunction
Outpatient hypercoagulable workup by hematology
Outpatient pulmonary office follow-up for symptom check up, full PFTs and to discuss sleep disordered breathing
Stable for downgrade out of ICU. No additional recommendations at this time. Wheel Adjuster/Pulmonary service will now sign off. Please reconsult if there are any additional questions/concerns, or if patient's respiratory status deteriorates.
Assessment
-
65-year-old non-smoking obese female with a history of epilepsy, phenytoin toxicity with chronic back pain, somewhat sedentary with no miscarriages and questionable family history of sister with clot presented with syncope the night before and
progressive dyspnea with minimal exertion found to have tachycardia, hypotension, hypoxemia and significant clot burden pulmonary emboli unprovoked with right heart strain-collar stay fuser tender consulted for pulmonary embolism/critical care management
09/26/2025.
Significant clot burden unprovoked pulmonary embolism with syncope, hypoxemia, tachycardia and hypotension
Significant right heart strain, elevated troponin, elevated proBNP
PESI [id number] IV high risk
Status post catheter directed lysis emergently 09/26/25-midnight
Right thyroid nodule-incidentally noted 1.9 cm-dedicated thyroid ultrasound recommended
Conditions present prior to admission:
Epilepsy.
Phenytoin toxicity.
Obesity.
Plan
Patient is markedly improved, with minimal O2 requirements currently at 2 L/min and improved SOB
Continue with heparin drip with transition to NOAC tonight
Case management consult to assess affordability of Eliquis
Wean down supplemental O2 as tolerated; would check an ambulatory pulse oximetry prior to discharge
Peripheral lower extremity duplex US was negative for DVT
Echo performed today (09/27/2020) shows RV dilation with reduced systolic function, with preserved LVEF at 65 to 70%, with moderate�severe TR and estimated PASP 44 mmHg. No prior echo for comparison purposes. Would recommend repeat echo in 4-6
weeks to assess for improvement versus persistence of her pulmonary hypertension and RV dysfunction
Aspiration precautions
Incentive spirometry
CT chest personally reviewed-see below
Recommend eventual hypercoagulable workup-unprovoked clot
Full PESI summarized above
Benefits and risks of thrombolytics therapy were reviewed
The patient had some tachycardia, hypotension, syncopal episode, marginal saturations with significant clot burden, troponin elevation, proBNP elevation and benefits of thrombolytics outweigh the risks-thrombolytic therapy via interventional
radiology catheter directed method and possible suction thrombectomy is recommended
Interventional radiology consulted and performed catheter directed thrombolytic therapy midnight 09/25/2025
Repeat pulmonary arteriography on 09/26 showed improvement with pressures of 12 mmHg on the right and 13 mmHg on the left pulmonary arteries. Thrombolysis infusion terminated and sheath removed.
Okay for patient to get up OOB
DVT prophylaxis-on full anticoagulation
Early nutrition
Early mobilization
Obstructive sleep apnea suspected- has sleep apnea and she is aware, patient snores, feels unrefreshed + is tired during the daytime
Outpatient pulmonary/sleep disorders follow-up
Outpatient hematology follow-up
Outpatient appropriate malignancy screening including colonoscopy
Outpatient thyroid ultrasound
Stable for downgrade out of ICU. No additional recommendations at this time. Wheel Adjuster/Pulmonary service will now sign off. Thank you for allowing us to be involved in the care of this patient. Please reconsult if there are any additional
questions/concerns, or if patient's respiratory status deteriorates.
Diagnostic data:
CTA chest 09/25/2025-extensive bilateral right greater than left pulmonary emboli with some proximal clots, no saddle; significant right heart strain, hypoattenuating right thyroid lobe nodule measuring 1.9 cm
Chest x-ray 09/25/2025-NAD
Lower extremity ultrasound 09/26/2025-no evidence for DVT
Subjective Dataa
Subjective Data
Date of Service:
Date of Service: September 27, 2025
Chief Complaint: Wheel Adjuster Follow Up, Pulmonary Follow Up and VTE Follow Up
Subjective:
Patient is doing well, currently on heparin drip. On 2 L/min nasal cannula and breathing comfortably. She does not have back pain anymore and her shortness of breath is improved.
Review of Systems
General: Other (Negative unless mentioned above)
Objective Data
Data Reviewed
Vital Signs / I&O / Oxygen:
Vital Signs
Temp Pulse Resp BP Pulse Ox
97.9 F 68 22 112/65 97
09/27/25 08:06 09/27/25 08:00 09/26/25 22:00 09/27/25 08:00 09/27/25 08:00
Intake and Output
09/26/25 09/27/25 09/28/25
06:59 06:59 06:59
Intake Total 820 / 999 3954 / 4043 538 / 538
Output Total 350 / 350 700 / 700
Balance 470 / 649 3254 / 3343 538 / 538
SaO2 97
Nasal Cannula flow liters per 1
minute
Physical Exam
General: Respiratory Distress (negative), Comfortable, Chills (negative) and Sweats (negative)
HEENT: Normocephalic and Anicteric
Cardiovascular: S1-S2 and Peripheral Edema (negative)
Respiratory: Wheeze (negative), Rhonchi (negative), Non-Labored Respirations, Stridor (negative) and Other (Coarse breath sounds heard at the bases)
GI: Soft, Distended (Abdominal obesity), Non Tender and Normal Bowel Sounds
Neurology: AO x 3 and Tremors (negative)
Skin: Warm, Dry, Cyanosis (negative) and Jaundice (negative)
Labs/Micro/Reports
Lab Data
09/27/25 03:55
Laboratory Results
09/26/25 09/26/25 09/26/25
12:00 18:00 23:09
PT Cancelled Cancelled
INR Cancelled Cancelled
APTT Cancelled Cancelled > 200 H*
09/27/25 09/27/25 09/27/25
06:00 12:00 18:00
PT
INR
APTT Cancelled Cancelled Cancelled
[2025-09-27 08:33] LABS: APTT 83.8 Sec (23.4-35.0)
--- NOTE | 2025-09-27 11:11 | W.PN.UPDATE ---
Update Note
Progress Note Update
I saw and evaluated the patient. I reviewed the resident�s note and agree with findings and plan as documented in the resident�s note.
Reports MIX but denies SOB at rest
Gen: NAD, AAOx3.
Eyes: EOMI, PERRLA, no scleral icterus.
Neck: supple.
CV: RRR, +S1/S2, no m/r/g.
Resp: CTAB, no rales, wheezes, or rhonchi.
Abd: +BS, soft, NT, ND
Skin: No rashes.
Neuro: CN 2-12 intact, non-focal.
Psych: Normal mood and affect.
CTA chest:
1. Extensive bilateral pulmonary embolism with significant right heart strain.
2. Hypoattenuating right thyroid lobe nodule measures up to 1.9 cm. Recommend outpatient workup with dedicated thyroid ultrasound if not previously performed.
Submassive PE:
-likely due to immobility due to back pain
-s/p catheter directed thrombolysis with alteplase
-s/p B/L pulmonary arteriography, intravascular pressure measurements, termination of thrombolysis infusion (Mean pressures 15 mmHg left PA, 16 mmHg right PA)
-cont heparin gtt until this evening, then transition to Eliquis
-trop trending down
-check echo
-was on 2L NC O2, now weaned to 1L NC O2
Other problems:
Seizure disorder: cont keppra/primidone
Mild transaminitis, resolved
Chronic LBP: pain control
Obesity due to excess calories
Transfer to [place]
FULL/heparin gtt
--- NOTE | 2025-09-27 11:51 | W.PN.GENERIC ---
Assessment / Plan
-
65 yo female admitted for unprovoked PE s/p IR thrombolysis
Continue anticoagulation and transition to OAC
Continue hematologic workup
Physician Progress Note
Subjective
This is a 65-year-old female with past medical history significant for epilepsy, recent diagnosis of phenytoin toxicity now discontinued who presents to the emergency department with shortness of breath, back pain and a syncopal episode. She
reported she started having back pain and dyspnea, worse on exertion, on Saturday prompting her to come to the Emergency Dept. She was found to have a PE on CT scan with right heart strain. She had PE lysis in IR and reports some improvement in
her breathing
She denies fever, chills, chest pain, palpitations, lightheadedness or dizziness. She denies any lower extremity swelling. She denies any prior history of venous thromboembolism. She denies any family history of clots.
Past Medical History:
Epilepsy
Social History
Tobacco: Non-smoker
Alcohol: Occasional
Marital Status:
Allergies
Allergy/AdvReac Type Severity Reaction Status Date / Time
No Known Allergies Allergy Verified 09/25/25 19:29
Home Medications
Th patients medications were verified during this visit including medication name, frequency, dosage and route
primidone 250 mg tablet 750 mg PO BID Seizures
levetiracetam 500 mg tablet 1,000 mg (2 x 500 mg) PO BID
Objective
Vital Signs
Temp Pulse Resp BP Pulse Ox
98.7 F 79 22 122/57 95
09/27/25 11:07 09/27/25 11:00 09/26/25 22:00 09/27/25 09:58 09/27/25 11:00
Lab Results
09/27/25 03:55
09/27/25 08:12
This is a WNWD 65 yo female in NAD sitting up in a chair. Her color is good. Her skin is warm and dry. Her neck is supple. Her heart is regular. Her lungs are CTA. Abdomen is soft and nontender with bowel sounds. No back pain on palpation. No
LE edema.
--- NOTE | 2025-09-27 12:17 | PTCARENOTE ---
pt. worked w PT/OT; tolerated activity. O2 weaned down to 1LNC, SpO2 96%, tolerating. Remains OOB to chair on IVF and heparin gtt, tolerating activity and meals. Assessment unchanged from previous. Call alvin umana in reach.
--- NOTE | 2025-09-27 16:25 | CM ---
CM reviewed chart, patient seen bedside, initial assessment completed.
Patient is a 65-year-old female with past medical history significant for epilepsy, recent diagnosis of phenytoin toxicity now discontinued who presents to the emergency department with shortness of breath and a syncopal episode.
Patient resides with her spouse in a single story home, one step to enter.
Patient is independent with ADLs/IADLs, currently on O2, does not wear O2.
Patient denies VN/SNF.
Patient PCP Duc Plunkett, Pharmacy [facility], does not have prescription coverage.
Consult received for consult of [employer]- retail romero over $700, patient provided with 30 day and 10 dollar co pay card.
CM will continue to follow for all d/c planning needs.
Plan; home no needs, coupons cards placed in chart
[2025-09-27 16:37] LABS: APTT 104.9 Sec (23.4-35.0)
--- NOTE | 2025-09-27 16:49 | PTCARENOTE ---
Uncertain of validity of PTT drawn @ 1453; lab redrawn @ 1619 and resulted w in target range. Lab notified to cancel 1453 result d/t sample error. Heparin gtt continues; plan to transition off gtt tonight to Eliquis. Pt. updated on plan of care.
Call esquivel in reach.
[2025-09-27] MEDS: ELIQUIS 10 MG PO (20:07)
[2025-09-27] MEDS: COLACE PO (20:08)
--- NOTE | 2025-09-27 20:50 | PTCARENOTE ---
Pt transferred to [facility] from ICU via wheelchair. Pt ambulated independently from wheelchair to bed. A&Ox3. Oriented to unit. Call light within reach. Plan of care ongoing.
[2025-09-28 02:29] LABS: INR 1.16; PT 15.1 Sec (11.4-14.6)
[2025-09-28 06:07] LABS: INR 1.10; PT 14.6 Sec (11.4-14.6)
[2025-09-28 06:08] LABS: APTT 30.6 Sec (23.4-35.0)
[2025-09-28 07:00] VITALS: BP 133/86
[2025-09-28 07:07] LABS: ALT (SGPT) 22 U/L (0-35); AST (SGOT) 22 U/L (14-36); Albumin 3.8 g/dl (3.5-5.0); Alkaline Phosphatase 96 U/L (38-126); Blood Urea Nitrogen 5 mg/dl (7-17); Calcium 8.6 mg/dl (8.4-10.2); Carbon Dioxide 27 mmol/L (22-30); Chloride 108 mmol/L (98-107); Estimated Creatinine Clearance 118 ml/min; Glucose 86 mg/dl (70-99); Potassium 4.2 mmol/L (3.5-5.1); Sodium 139 mmol/L (135-145); Total Protein 6.5 g/dl (6.3-8.2); eGFR > 60.00
[2025-09-28] MEDS: ELIQUIS 10 MG PO (07:56)
[2025-09-28] MEDS: KEPPRA 1000 MG PO (07:56)
[2025-09-28] MEDS: MYSOLINE 750 MG PO (07:57)
[2025-09-28] MEDS: COLACE PO (07:57)
--- NOTE | 2025-09-28 08:11 | W.PN.UPDATE ---
Update Note
Progress Note Update
I saw and evaluated the patient. I reviewed the resident�s note and agree with findings and plan as documented in the resident�s note.
No new complaints.
Gen: NAD, AAOx3.
Eyes: EOMI, PERRLA, no scleral icterus.
Neck: supple.
CV: RRR, +S1/S2, no m/r/g.
Resp: CTAB, no rales, wheezes, or rhonchi.
Abd: +BS, soft, NT, ND
Skin: No rashes.
Neuro: CN 2-12 intact, non-focal.
Psych: Normal mood and affect.
CTA chest:
1. Extensive bilateral pulmonary embolism with significant right heart strain.
2. Hypoattenuating right thyroid lobe nodule measures up to 1.9 cm. Recommend outpatient workup with dedicated thyroid ultrasound if not previously performed.
Echo:
1. Ejection fraction is 65-70% by visual assessment.
2. Normal left ventricular size, wall thickness and systolic function. No regional wall motion abnormalities are seen.
3. Aortic sclerosis with trace aortic insufficiency.
4. The right ventricle is dilated with reduced function.
5. Moderate to severe tricuspid regurgitation. Estimated pulmonary artery pressure of 44 mmHg assuming a right atrial pressure of 3 mmHg.
6. Moderately dilated right atrium.
Submassive PE with cor pulmonale (POA):
-likely due to immobility due to back pain
-s/p catheter directed thrombolysis with alteplase
-s/p B/L pulmonary arteriography, intravascular pressure measurements, termination of thrombolysis infusion (Mean pressures 15 mmHg left PA, 16 mmHg right PA)
-was on heparin gtt, then transitioned to Eliquis 11/10PM
-trop trending down
-echo above
-was on 2L NC O2, now weaned to RA
Other problems:
Seizure disorder: cont keppra/primidone
Mild transaminitis, resolved
Chronic LBP: pain control
Obesity due to excess calories
FULL/Eliquis
Medically cleared for d/c, case management aware.
Total time spent on d/c = 32 min. This included today's physical exam, progress note, review of laboratory and diagnostic data, preparation of discharge documents and prescriptions, and discussions about the pt's hospital course and discharge plan
with the patient and other anesthesiology medical doctor involved in the patient's care.
[2025-09-28 10:27] VITALS: BP 155/90
--- NOTE | 2025-09-28 10:49 | CM ---
Patient seen at bedside on . Patient stated that she will go home with her and that she would like [facility] for VN supports following review of options. CM spoke with liaison and they will accept referral. CM will continue to follow for
discharge planning needs.
Plan; home with VN to follow
--- NOTE | 2025-09-28 11:24 | VNURNOTE ---
Home Health Liaison met with patient at bedside to discuss [facility] nurse/therapy, visits, schedule and homebound status. Patient stated when SERVICE ADMINISTRATOR met with her earlier she was half asleep and 'didn't know what I was agreeing to.' Explained to pt that
[facility] would contact her for start of care within a week after discharge from , explained the services we could provide. Patient declined HH services, stating she and her spouse can manage. This author asked if I could call her spouse to
discuss and pt declined. This author instructed pt that if she changes her mind, she can follow up with PCP and request them to order us. Pt verbalized understanding. CM notified.
--- NOTE | 2025-09-28 12:48 | W.PN.HOSP.TC ---
Today's Communication/Plan
-
Discharged on Eliquis 10 mg twice daily for 6 more days, followed by Eliquis 5 mg twice daily to prevent future pulmonary embolisms./Patient follow-up with a hangar attendant in addition to PCP.
Assessment / Plan
Assessment / Plan
Impression
65-year-old past medical history significant for epilepsy (with recent phenytoin toxicity), ataxia who presents to the emergency department with shortness of breath and a syncopal episode and was found to have a submassive PE with right heart strain
and elevated troponin. Blood pressure stable and patient is not requiring supplemental oxygen with oxygen saturation of around 93%.
Received alteplase infusion per interventional radiology on 09/26/2025 midnight. Monitored in ICU and downgraded to MedSurg on 09/27/2025.
HPI
Patient reported being in usual state of health up until 1 day prior to admission when she felt short of breath. She went to sleep and when she awoke in the morning today she felt weak. When she was in the bathroom, she felt very fatigued. She
had dyspnea on exertion. She reported that she was sitting down on the bed and tried to lean forward to relieve back pain when she had a presyncopal episode. Spouse reported that she slipped onto the floor and was unable to get up. She was not
responding for about 5 minutes, although she had eyes open. Patient recalled that she could hear name being called but was unable to respond appropriately due to weakness. This did resolve and patient was able to get back into bed. Daughter heard
of the information and requested that she come to the emergency department.
Patient denies prior chest pain, palpitations, lightheadedness or dizziness. She had no recent travel. She denies any recent cold or flulike symptoms. She denies any sick contacts. Patient was last in the hospital in July. Denied any
recent surgeries. She denies any lower extremity swelling. She denies any prior history of venous thromboembolism. She denies any family history of clots.
ED course
In the department patient was afebrile, blood pressure was 90/74 with a pulse rate of 92 and satting 93% on room air. Chest x-ray was clear. ECG shows a sinus rhythm at rate of 98 with T wave inversions in the anterior lateral leads and S1Q3T3
pattern. Troponin was elevated at 1.2. BNP was elevated at 1660. CBC was unremarkable. Electrolytes BUN/creatinine were all in normal range.
CT chest showing extensive bilateral pulmonary embolism with significant right heart strain.
2. Hypoattenuating right thyroid lobe nodule measures up to 1.9 cm. Recommend outpatient workup with dedicated thyroid ultrasound if not previously performed.
Peripheral vascular ultrasound 09/26/25:
No evidence of deep venous thrombosis in the limited visualized portions of the bilateral lower extremities as described above.
Plan
Submassive pulmonary embolism due to unknown cause:
:: Patient came in with complaint of syncopal episode, nausea, dyspnea on exertion, fatigue, weakness
:: No recent surgeries, family history of clotting disorders, prolonged immobilization, travel, cancer history, OCP use, smoking
- Chest CT showed extensive bilateral pulmonary embolism with significant right heart strain (with stable vitals this indicates she is a submassive PE), EKG showed classic Q1S3 T3 pattern, peripheral vascular ultrasound negative for DVT
:: No DVT bilaterally on ultrasound
- Troponin is 1.250 on 09/25/2025 on admission and today on 09/26/2025 it is 0.585. Pro BNP elevated at 6360 on 09/25/25. Likely due to right ventricular stretch/strain.
- S/p alteplase infusion into pulmonary artery by interventional radiology 09/26/2025
- Heparin drip. Transitioned to Eliquis 10 mg twice daily for 7 days, followed by Eliquis 5 mg twice daily indefinitely.
� Case management has discussed pricing with the patient. The patient does not have a prescription benefit in her health insurance. The nurse case manager is able to provide 2 coupons. Eliquis will be about $70 per month for the patient
- Echocardiogram EF 65 to 70%. No regional wall motion abnormalities and LV. Right ventricle dilated with reduced function
- PT/OT recommended outpatient therapy. Patient is not able to drive with seizure disorder. Visiting nurse service arranged
- Continue patient on regular diet
� Wean O2 as tolerated. Encourage incentive spirometry
Pulmonology/ICU consulted
� Outpatient follow-up for: Hypercoagulable workup with hematology, ROBERT/sleep disorders workup with pulmonology, malignancy screening (including colonoscopy), thyroid ultrasound
Epilepsy:
- Continue home Keppra and primidone doses
- Keppra level 49.2 high
Elevated transaminases:
:: AST is 45 and ALT is 39
:: No abdominal tenderness, jaundice, GI upset. Continue to observe.
Chronic lower back pain:
:: Complaining of pain on movement especially on flexion or sudden movements
:: No midline tenderness, slight paravertebral tenderness, suggesting musculoskeletal strain
- continue on Tylenol and Dilaudid. Continue to observe for worsening of back pain in a few hours and if it worsens then we can increase dose of Dilaudid.
DVT ppx: heparin gtt
Full code
Anticipated Discharge: Today
Subjective/Interval History
-
Date of Service: September 28, 2025
No acute events overnight. Patient had no complaints morning
Objective Data
-
Labs:
Laboratory Results
09/28/25 09/28/25 09/28/25
01:36 05:44 12:00
PT 15.1 H 14.6 Cancelled
INR 1.16 1.10 Cancelled
APTT 30.6
Sodium 139
Potassium 4.2
Chloride 108 H
Carbon Dioxide 27
BUN 5 L
Creatinine 0.5 L
Glucose 86
Calcium 8.6
Total Bilirubin 0.4
AST 22
ALT 22
Alkaline Phosphatase 96
09/28/25
18:00
PT Cancelled
INR Cancelled
APTT
Sodium
Potassium
Chloride
Carbon Dioxide
BUN
Creatinine
Glucose
Calcium
Total Bilirubin
AST
ALT
Alkaline Phosphatase
Vital Signs:
Vital Signs
Temp Pulse Resp BP Pulse Ox
97.7 F 95 21 155/90 97
09/28/25 10:27 09/28/25 10:27 09/28/25 10:27 09/28/25 10:27 09/28/25 10:27
I&O
09/27/25 09/28/25 09/29/25
06:59 06:59 06:59
Intake Total 3954 / 4043 1143 / 1143
Output Total 700 / 700 400 / 400
Balance 3254 / 3343 743 / 743
Review of Systems
-
History Source: Patient
All other systems: Reviewed and negative
Physical Exam
-
General: Well Developed, Well Nourished, No Apparent Distress, Comfortable and Conversant
HEENT: Normocephalic, Atraumatic, Anicteric, No Ptosis, Nose Appears Normal and Ears Appear Normal; Negative Oxygen
Respiratory: Clear to Auscultation
Cardiac: Regular Rhythm and S1/S2
GI: Soft, Nontender, Nondistended and Normal Bowel Sounds
Musculoskeletal: No Clubbing and No Cyanosis
Skin: Warm and Dry
Neuro: Awake and Alert
Psych: Calm
--- NOTE | 2025-09-28 13:34 | W.DCSUMMARY ---
Discharge Summary
Discharge Data
Date of Admission: 09/25/25
Date of Discharge: 09/28/25
-
Pending Results: No
Hospital Course
Discharging Physician : Dr. Pearson and Dr. Harris
Disposition : Home with home health
Primary care physician : Duc Plunkett
Principal Discharge diagnosis : Submassive pulmonary embolism
Chronic Discharge diagnosis : Epilepsy, lower back pain, ataxia
Hospital Course :
She reported being in usual state of health up until 1 day prior to admission when she felt short of breath. She went to sleep and when she awoke in the morning today she felt weak. When she was in the bathroom, she felt very fatigued. She had
dyspnea on exertion. She reported that she was sitting down on the bed and tried to lean forward to relieve back pain when she had a presyncopal episode. Spouse reported that she slipped onto the floor and was unable to get up. She was not
responding for about 5 minutes, although she had eyes open. Patient recalled that she could hear name being called but was unable to respond appropriately due to weakness. This did resolve and patient was able to get back into bed. Daughter heard
of the information and requested that she come to the emergency department.
ED course
In the department patient was afebrile, blood pressure was 90/74 with a pulse rate of 92 and satting 93% on room air. Chest x-ray was clear. ECG shows a sinus rhythm at rate of 98 with T wave inversions in the anterior lateral leads and S1Q3T3
pattern. Troponin was elevated at 1.2. BNP was elevated at 1660. CBC was unremarkable. Electrolytes BUN/creatinine were all in normal range.
Problem 1: Submassive PE
CT PE demonstrated submassive PE with right heart strain. EKG demonstrated right heart strain with the S1Q3T3 pattern. The patient was put on a heparin drip. IR performed catheter directed thrombolysis. The patient was monitored in the ICU. The
patient did not have signs of bleeding. She was transitioned to Eliquis 10 mg twice daily. She instructed to complete a 7-day course, and then take Eliquis 5 mg twice daily (starting on October 04 p.m.). She had dyspnea with exertion, and her
supplemental O2 was weaned to room air.
She was instructed to see radiologist for a hypercoagulable workup, follow-up with her PCP for age-appropriate cancer screening (including colonoscopy), and see a yarn salvager for possible ROBERT workup. She was also recommended to get a thyroid
ultrasound. She stated that her sister had a clot, and she is trying to get in contact with her sister to ask if she has been diagnosed with a hypercoagulable disorder.
Problem #2: History of epilepsy
Her home Keppra improvement tone were continued. PT and OT recommended outpatient therapy, since she had exertional dyspnea. She does not drive due to epilepsy. Visiting nurse services were set up with the help of case management.
Problem #3: Chronic lower back pain
Tylenol and Dilaudid were provided. She was not discharged on pain medications.
Important imaging findings :
CT chest 09/25/2025
1. Extensive bilateral pulmonary embolism with significant right heart strain.
2. Hypoattenuating right thyroid lobe nodule measures up to 1.9 cm. Recommend outpatient workup with dedicated thyroid ultrasound if not previously performed.
Chest x-ray 09/25/2025
No acute cardiopulmonary process.
Peripheral vascular ultrasound 11/26/2024
1. No evidence of deep venous thrombosis in the limited visualized portions of the bilateral lower extremities as described above.
Procedure findings :
Initiation of thrombolysis infusion 09/25/2025 midnight
Mean pulmonary artery pressure 16 mmHg on the right and 15 mmHg on the left. Catheter directed thrombolysis infusion initiated as described.
Pulmonary and thoracic arteriogram 09/25/2025
Mean pulmonary artery pressure 16 mmHg on the right and 15 mmHg on the left. Catheter directed thrombolysis infusion initiated as described.
Thrombolysis infusion 09/26/2025 midnight
Post pulm arteriography, pressure measurements, initiation of thrombolysis infusion. Mean pressures 15 mmHg left PA, 16 mmHg right PA. Alteplase infusion via 7 Fr catheter positioned in right PA, 1 mg/hr. Heparin infusion via PIV, 400 units/hr. The
7 Fr catheter is occlusive in the 7 Fr CF vein sheath, no sheath infusion. No immediate complications.
Repeat pulmonary arteriography 09/26/2025 1 PM
Repeat pulm arteriography shows improvement. Pressure ~12mmHg R and 13 mmHg L. Vitals now wnl, troponin decreasing. Thrombolysis infusion terminated. Sheath removed. Resume therapeutic heparin gtt 1530 pm.
Significantly improved after approximately 12 hours of thrombolysis. Thrombolysis infusion terminated as described.
Discharge Plan
-
Patient Disposition: Home (Routine Discharge)
Discharge Diagnosis/Procedures: Submassive PE (started Eliquis)
Seizure disorder
Mild transaminitis
Chronic lower back pain
Condition: Good
Diet: Low Cholesterol and Low Sodium
Activity: With assistance
Driving Restrictions: No driving
Bathing Restrictions: None
Other Services: PT and OT
Referrals:
Duc Plunkett MD [Family Provider, [facility]] - in less than 1 week
Referral Note: Please follow-up with your PCP regarding your hospitalization for a submassive pulmonary embolism
Michael Holden MD [Active, Pulmonary Medicine] - in two to three weeks
Referral Note: Follow-up for submassive pulm embolism, PFTs recommended, ROBERT possible
Yandel Kaur MD [Active, Hematology / Oncology] - in two to four weeks
Referral Note: Please see complaint coordinator to see if you may have a hypercoagulable condition, that predispose to to a PE
Additional Discharge Medication Instructions: To prevent recurrence of a pulmonary embolism, please take Eliquis (apixaban) 10 mg twice daily to finish a 7-day course (6 more days). After the 7-day course, starting on October 04 PM dose, please
take Eliquis 5 mg twice daily.
Please follow-up with yarn salvager Dr. Holden as well as your PCP regarding your pulmonary embolism and to do a workup for possible sleep apnea.
Please see a complaint coordinator to investigate if you have a hypercoagulable condition, that could put you at increased risk for blood clots.
Prescriptions:
New
Eliquis 5 mg Tablet
10 mg PO BID Qty: 24 0RF
Eliquis 5 mg tablet
5 mg PO BID Qty: 60 0RF
Rx Instructions:
start 10/04/25PM
Continued
primidone 250 mg Tablet
750 mg PO BID
levetiracetam 500 mg Tablet
1,000 mg PO BID 30 Days Qty: 120 0RF
Discharge Orders:
Discharge Patient (As Directed); Ordered 09/28/25
Ordered By: Ky Pearson
Discharge Date and Time
Discharge Date/Time: 09/28/25 11:50
Print Language: LAO
== END 2025-09-28 11:50 | disposition home health service (06) | DRG 175 ==
LOC: 3 WEST ACU 22:33
PROVIDERS: Internal Medicine; Nurse Practitioner Primary Care; Physician Assistant; Radiology Vascular & Interventional Radiology; ADMITTING PHYSICIAN Internal Medicine; ATTENDING PHYSICIAN Internal Medicine; CONSULT PHYSICIAN Internal Medicine Critical Care Medicine; EMERGENCY PHYSICIAN Emergency Medicine; FAMILY PHYSICIAN Family Medicine
PROC: B41F1ZZ Fluoroscopy of Right Lower Extremity Arteries using Low Osmolar Contrast (ICD-10-PCS; 2025-09-26)
PROC: 3E03317 Introduction of Other Thrombolytic into Peripheral Vein, Percutaneous Approach (ICD-10-PCS; 2025-09-26)
PROC: 4A043B1 Measurement of Venous Pressure, Peripheral, Percutaneous Approach (ICD-10-PCS; 2025-09-26)
DX: I26.09 Other pulmonary embolism with acute cor pulmonale (principal); G40.909 Epilepsy, unspecified, not intractable, without status epilepticus; G89.29 Other chronic pain; E04.1 Nontoxic single thyroid nodule; E66.9 Obesity, unspecified; Z68.36 Body mass index [BMI] 36.0-36.9, adult; G47.33 Obstructive sleep apnea (adult) (pediatric); R09.02 Hypoxemia; Z79.899 Other long term (current) drug therapy; Z11.52 Encounter for screening for COVID-19
CPT/HCPCS: 36015; 36620; 37211; 37214; 71046; 71275; 75741; 76937; 80048; 80053; 80177; 82962; 83735; 83880; 84100; 84484; 85025; 85027; 85610; 85730; 86803; 86850; 86900; 86901; 87811; 93005; 93306; 93970; 96365; 97163; 97167; 99152; 99153; 99291; C1769; J2997; Q9967